=== PATIENT | female | born 1955 | race Caucasian/White ===

== ENCOUNTER 2020-04-26 09:43 | Outpatient (NON) | payer BC, SELFPAY ==
[2020-04-27 20:00] LABS: SARS-CoV-2 RNA PCR Negative
== END 2020-04-26 09:44 ==
PROVIDERS: PCP Family Medicine; Visit Provider Physician Assistant
DX: Z20.828 Contact with and (suspected) exposure to other viral communicable diseases (principal); R68.89 Other general symptoms and signs
CPT/HCPCS: 87635; C9803; U0003

== ENCOUNTER 2020-11-01 20:10 | Observation (INO) | payer BC, SELFPAY ==
--- NOTE | ~2020-11-01 | MR_ITS ---
EXAMINATION: MR brain/brain stem wo/w con DATE: 11/02/2020 13:45 CDT INDICATION: Paresthesia TECHNIQUE: Magnetic resonance imaging (MRI) of the brain and brainstem was performed without intraven ous contrast. Sequences included sagittal and axial T1-weighted SE, axial diffusion-weighted FS SE, a xial T2*-weighted GRE, axial T2-weighted FLAIR Propeller, and axial T2-weighted Propeller. Apparent d iffusion coefficient (ADC) maps were created. COMPARISON: CTA dated 11/01/2020 FINDINGS: The brain volume and ventricular system are within normal limits. The brain parenchymal si gnal intensity pattern and yu/white matter is normal and there is no evidence of hemorrhage, space occupying masses or infarctions. There are scattered mild periventricular and subcortical white matte r changes, most likely related to small vessel ischemic disease (microangiopathy). The flow signal voids of the major arterial structures about the [place] and within the giovanna r dural venous sinuses appear grossly unremarkable and patent. The seventh and eighth cranial nerve complexes are normal. The mid sagittal image demonstrates a normal craniovertebral junction and kaila us callosum. The paranasal sinuses are grossly unremarkable. No abnormal contrast enhancement was appreciated. IMPRESSION: 1: No acute intracranial abnormality. 2: Chronic age-related findings. Reviewed, dictated and finalized at location B.
--- NOTE | ~2020-11-01 | CT_ITS ---
EXAMINATION: CTA brain carotid DATE: 11/01/2020 21:23 INDICATION: Left-sided numbness. TECHNIQUE: Computed tomographic angiography (CTA) of the head was performed without and with 100 mL O mnipaque-350 intravenous contrast. CTA of the neck was performed with intravenous contrast. Automated exposure control and iterative reconstruction technique were employed. The dose-length product was 1 687.24 mGy-cm. Maximum intensity projection and volume rendered 3D-reconstructions were created by natalee diaz technologist on a separate workstation. COMPARISON: None. FINDINGS: HEAD CTA: There is no intracranial hemorrhage, acute infarction, or abnormal intracranial mass lesion . The ventricles are normal in size. The orbits are normal. The paranasal sinuses are clear. The mast oid air cells are normal. The vertebral arteries are codominant. There is no significant stenosis of basilar artery. There are foci of moderate stenosis of left posterior cerebral artery. There is no si gnificant stenosis of the intracranial internal carotid arteries or anterior or middle cerebral arter ies. Anterior communicating artery is normal. The posterior communicating arteries are normal. There is no aneurysm. NECK CTA: There are no pathologically enlarged lymph nodes. There is no significant stenosis of the v ertebral arteries. There is plaque in the proximal right internal carotid artery. There is 0% stenosi s of the proximal right internal carotid artery relative to normal distal artery lumen diameter (NASC ET criteria). There is 0% stenosis of the proximal left internal carotid artery relative to normal di stal artery lumen diameter. There is mild cervical spondylosis. IMPRESSION: 1. Normal brain parenchyma. 2. Foci of moderate stenosis of left posterior cerebral artery. 3. 0% stenosis of the proximal internal carotid arteries relative to normal distal artery lumen diam eters (NASCET criteria). Reviewed, dictated and finalized at location A. IMPRESSION: 1. Normal brain parenchyma. 2. Foci of moderate stenosis of left posterior cerebral artery. 3. 0% stenosis of the proximal internal carotid arteries relative to normal di stal artery lumen diameters (NASCET criteria).
[2020-11-01 20:16] VITALS: BP 109/78; PULSE 59; RESP 20; TEMP 36.1; O2SAT 99
--- NOTE | 2020-11-01 20:28 | ECG_ITS ---
Measurements Intervals [place] Rate: 63 P: 14 ND: 169 QRS: -24 QRSD: 116 T: 84 QT: 425 QTc: 438 Interpretive Statements SINUS RHYTHM NONSPECIFIC ST & T-WAVE ABNORMALITY- HIGH LATERAL LEADS BASELINE ARTIFACT- I, II, III, V5 BORDERLINE ECG Electronically Signed On 11-02-2020 6:10:55 CDT by Tyrone Garcia D.O.
--- NOTE | 2020-11-01 20:30 | ED.NEUROSD ---
HPI - Neuro Symptoms/Deficit General Chief Complaint: Neuro Symptoms/Deficit Stated Complaint: hands and lips numbness/tingling since Thursday Time Seen by Provider: 11/01/20 20:14 History of Present Illness HPI Narrative: 64 yo female w/ h/o hypothyroidism, hyperlipidemia presents to the ED for paresthesias. She reports that she has had three episodes of numbness in her lips and fingertips on the left side.. The first one was 3 days ago. The most recent was tonight. Tonight's was different in that she also felt lgiht headed. Each episode lasted 5 minutes of less. No trigger identified. She also has been experiencing a sore throat and left ear for the past few days. And she admits to spending significant time out in the heat. She had 2 tick bites recently. No rash. Related Data Home Medications Medication Instructions Recorded Confirmed aspirin 81 mg tablet,delayed 81 mg PO DAILY 11/07/19 11/02/20 release travoprost 0.004 % eye drops 1 drop EACH EYE QPM 11/07/19 11/02/20 Adult One Daily Multivitamin 1 tablet PO DAILY 11/01/20 11/02/20 vitamins A,C,I-jrys-bcdfqn 2 tablet PO BID 11/01/20 11/02/20 Allergies Allergy/AdvReac Type Severity Reaction Status Date / Time No Known Allergies Allergy Unknown Verified 11/02/20 00:12 Review of Systems Review of Systems: All systems reviewed & are unremarkable except as noted in HPI and below Constitutional: Constitutional: Denies fever(s) and Denies weakness Eyes: Eyes: Reports no additional eye complaints ENT: Comments: otalgia Cardiovascular: Cardiovascular: Denies chest pain Respiratory: Respiratory: Denies dyspnea Integumentary/Breasts: Skin/Breast: Denies rash Neurologic: Reports as per HPI Psychiatric: Psychiatric: Denies anxiety PMFSH Past Medical History Medical History (Updated 11/05/20 @ 17:34 by Jozef White MD) Acquired hammer toe Benign essential HTN Esophageal dyskinesia Hyperlipidemia Hypothyroidism (acquired) Surgical History Surgical History History of appendectomy History of bunionectomy History of cholecystectomy History of repair of ACL bilateral Hx of colonoscopy Hx of hysterectomy Family History Family History Mother Diabetes mellitus Hypertension Brain tumor Father Hypertension Acute myocardial infarction Sibling Patient's sister is in good health Hypertension Sibling Hypertension Social History Social History Social History: domestic partnership Smoking status: Never smoker Second hand tobacco smoke exposure: Yes Alcohol intake: current Drinks per week: 4 Substance use: never Substance use type: does not use Gender identity (if verbalized by the patient): Female Spiritual care concerns: No Exam Const: General: healthy appearing, no acute distress and alert Orientation/consciousness: patient oriented x3 HENMT: Head: normal to inspection Ears: external ears normal, TM's normal bilaterally and EAC's normal Eyes: Conjunctivae: conjunctivae normal Pupils: Equal, round and reactive pupils present EOM: EOMs intact bilaterally Neck: Neck: normal visual inspection and no lymphadenopathy Chest: Chest palpation & inspection: no tenderness Resp: Effort & Inspection: normal respiratory effort Auscultation: clear to auscultation bilaterally, no rales, no rhonchi and no wheezes Cardio: Jugular venous distension: no JVD Rate: regular rate Rhythm: regular rhythm Heart sounds: no murmurs GI: Inspection: non-distended GI Palp: Yes Soft to palpation and No Tenderness to palpation present (GI) Skin: General skin exam: normal color Rashes: no rashes Wounds: wound noted Neuro: General: patient oriented x3, moves all extremities, no focal motor deficits and CN's II-XI intact bilaterally Cranial
[2020-11-01 20:47] LABS: Basophils Absolute Auto 0.1 K/mm3 (0.0-0.1); Basophils Percent Auto 0.8 % (0.2-1.2); Eosinophils Absolute Auto 0.2 K/mm3 (0-0.3); Eosinophils Percent Auto 2.7 % (0-4.4); Hematocrit 39.8 % (37.0-47.0); Hemoglobin 13.1 g/dL (12.0-15.0); Immature Granulocyte Absolute 0.02 K/mm3 (0.00-0.031); Immature Granulocyte Percent A 0.3 % (0-0.5); Lymphocytes Absolute Auto 2.95 K/mm3 (0.9-3.2); Lymphocytes Percent Auto 40.2 % (18.3-44.2); Mean Corpuscular HGB Conc 32.9 g/dl (32-36); Mean Corpuscular Hemoglobin 28.9 pg (26-34); Mean Corpuscular Volume 87.9 fl (80-100); Mean Platelet Volume 9.4 fl (7.4-10.4); Monocytes Absolute Auto 0.5 K/mm3 (0.1-0.6); Monocytes Percent Auto 6.4 % (2.6-8.5); Neutrophils Absolute Auto 3.6 K/mm3 (1.3-6.7); Neutrophils Percent Auto 49.6 % (45.5-73.1); Platelet Count Result 220 k/mm3 (150-375); Red Blood Count 4.53 M/mm3 (4.2-5.4); Red Cell Distribution Width 12.3 % (11.5-14.5); White Blood Count 7.3 K/mm3 (4.5-10.0)
[2020-11-01] MEDS: SODIUM CHLORIDE 0.9% IV 1,000 ML 999 ML IV CONT (20:49)
[2020-11-01 20:57] LABS: Alanine Aminotransferase 23 U/L (4-35); Albumin Level 4.5 g/dL (3.5-5.1); Alkaline Phosphatase 67 U/L (38-126); Anion Gap 8 mmol/L (8-16); Aspartate Amino Transferase 34 U/L (14-36); Bilirubin,Total 0.3 mg/dL (0.2-1.3); Blood Urea Nitrogen 17 mg/dL (7-17); Calcium 9.5 mg/dL (8.4-10.2); Carbon Dioxide 25 mmol/L (22-30); Chloride 106 mmol/L (98-107); Estimated Glomerular Filt Rate > 60; Glucose 93 mg/dL (65-105); INR 0.9; Potassium 3.8 mmol/L (3.4-5.0); Sodium 139 mmol/L (137-145)
[2020-11-01 21:09] LABS: Troponin I < 0.012 ng/mL (0.000-0.034)
--- NOTE | 2020-11-01 23:22 | PM.IMHP ---
H&P: HPI History of Present Illness Date/Time: 11/01/20 23:22 Chief Complaint: numbness Narrative: this is a 64-year-old female with past medical history significant for dyslipidemia and type 2 diabetes mellitus GERD hypothyroidism. Patient presented to the emergency room due to tingling numbness sensation on of finger tips of her left hand around her lips and migraine headache with tightness of the scalp on the left parietal region, no focal weakness no visual deficit had problems finding words as well. Patient states that she has been playing golf most of the last couple of weeks or so and has been keeping up with her hydration has had night sweats denies rashes joint pain sore throat no fevers no rigors no chills no cough no shortness of breath has had a few episodes as above mentioned but today she felt he was worse which made her come to the emergency room.Patient also had to tick bites within the last week or so and was able to dislodged them. preliminary workup has been essentially non revealing. Patient has been placed for observation. Review of Systems Review of Systems: Narrative: numbness tingling sensation around the lips and fingertips migraine headache a scalp paresthesia Constitutional: Constitutional: Denies body ache(s), Denies chills, Denies fatigue, Denies fever(s), Denies lethargy, Denies malaise, Reports night sweats and Denies weakness Eyes: Eyes: Denies change in vision ENT: Denies facial pain, Denies mouth pain, Denies nasal congestion, Denies nasal discharge, Denies nasal obstruction, Denies post nasal drip, Denies throat swelling and Denies tongue swelling Cardiovascular: Cardiovascular: Denies chest pain, Denies irregular heart rhythm, Denies claudication, Denies leg edema, Denies lightheadedness, Denies radiating jaw, neck or arm pain, Denies palpitations, Denies dyspnea and Denies dyspnea on exertion Respiratory: Respiratory: Denies chest congestion, Denies cough, Denies dyspnea, Denies dyspnea on exertion and Denies wheezing Gastrointestinal: Gastrointestinal: Denies diarrhea, Denies nausea and Denies vomiting Genitourinary: Genitourinary: Reports no additional female genitourinary complaints Musculoskeletal: Musculoskeletal: Denies arthralgias, Denies joint swelling, Denies limited range of motion and Denies muscle weakness Integumentary/Breasts: Skin/Breast: Denies rash Neurologic: Reports Abnormal speech present, Denies focal weakness, Denies loss of vision, Reports numbness and Reports paresthesias Psychiatric: Psychiatric: Reports no additional psychiatric complaints Endocrine: Endocrine: Reports no additional endocrine complaints Hematologic/Lymphatic: Hematologic/Lymphatic: Reports no additional hematologic/lymphatic complaints Allergic/Immunologic: Allergic/Immunologic: Reports no additional allergic/immunologic complaints PMFSH Past Medical History Medical History (Updated 11/02/20 @ 00:20 by Nely Olvera MD) Acquired hammer toe Benign essential HTN Esophageal dyskinesia Hyperlipidemia Hypothyroidism (acquired) Surgical History Surgical History History of appendectomy History of bunionectomy History of cholecystectomy History of repair of ACL bilateral Hx of colonoscopy Hx of hysterectomy Family History Family History Mother Diabetes mellitus Hypertension Brain tumor Father Hypertension Acute myocardial infarction Sibling Patient's sister is in good health Hypertension Sibling Hypertension Social History Social History (Updated 01/31/20 @ 10:29 by Sophia Nur) Social History: domestic partnership Smoking status: Never smoker Second hand tobacco smoke exposure: Yes Alcohol intake: current Drinks per week: 4 Substance use: never Substance use type: does not use Gender identity (if verbalized by the pat
[2020-11-01 23:27] VITALS: BP 131/71; PULSE 66; RESP 14; O2SAT 99
--- NOTE | 2020-11-01 23:50 | ADMGEN ---
This patient, Hiwot Zaman, was admitted to Medical Room 348-01. Patient/family oriented to hospital policies and general routines including ID bracelet, bed and alarms, visiting hours, pain management, procedures, bathroom and other care routines, personal items, smoking policy, room service/diet, and visiting hours. Information on how to activate the Rapid Response Team has been discussed. Patient/Family are encouraged to report perceived risks to care and to ask questions if they do not understand what they are told or what they should do.
[2020-11-02] VITALS (11 sets, daily range): BP systolic 142–170; BP diastolic 60–69; PULSE 53–76; RESP 15–16; TEMP 36.2–36.6; O2SAT 97–99; BMI 32.4
--- NOTE | 2020-11-02 | ECHO_ITS ---
Patient Info Name: Hiwot Zaman Age: 64 years : 1955 Gender: Female Ht: 68 in Wt: 213 lbs BSA: 2.18 m2 HR: 56 bpm BP: 161 / 67 mmHg Technical Quality: Good Exam Date: 11/02/2020 3:53 PM Exam Location: [facility] Patient Status: Inpatient Admit Date: 11/01/2020 Staff Ordering Physician: Meaghan Fenton PA-C Practice Management Consultant: Erica Araiza RDCS Attending Provider: Meaghan Fenton PA-C Referring Physician: Jossy HERNÁNDEZ; Exam Type: CA echo doppler w bubble study Study Info Indications - TIA Complete two-dimensional, color flow and Doppler transthoracic echocardiogram is performed with agitated saline. Contrast/Agitated Saline Contrast/Ag. Saline: Agitated Saline Amount: 20.00 ml Administered By: Peggy Carrington RN Existing IV Access: Yes IV Access Condition: patent with no signs of infiltration Summary 1. Left ventricular chamber dimension is normal. 2. Left ventricular systolic function is normal, estimated at 60-65%. 3. There is mildly increased left ventricular wall thickness. 4. The left ventricular diastolic function is grade I diastolic dysfunction. 5. E/e' 10 is mildly elevated. 6. Left atrial chamber dimension is moderately enlarged. 7. There is mild mitral valve regurgitation. 8. There is trace tricuspid valve regurgitation. 9. No pulmonary hypertension, estimated pulmonary arterial systolic pressure is 29 mmHg. Left Ventricle E/e' 10 is mildly elevated. Left ventricular chamber dimension is normal. Left ventricular systolic function is normal, estimated at 60-65%. There is mildly increased left ventricular wall thickness. The left ventricular diastolic function is grade I diastolic dysfunction. Right Ventricle Right ventricular chamber dimension is normal. Right ventricular systolic function is normal. Left Atria Left atrial chamber dimension is moderately enlarged. Right Atria Right atrial chamber dimension is normal. Atrial Septum Agitated saline injection with and without valsalva maneuver opacified right cardiac chambers without shunt to left cardiac chambers. Intact interatrial septum visualized by agitated saline imaging. Aortic Valve The aortic valve is trileaflet. There is no aortic valve stenosis. There is no aortic valve regurgitation. Pulmonic Valve There is no pulmonic regurgitation. Mitral Valve There is no mitral valve stenosis. There is mild mitral valve regurgitation. Tricuspid Valve There is trace tricuspid valve regurgitation. No pulmonary hypertension, estimated pulmonary arterial systolic pressure is 29 mmHg. Pericardium/Pleural There is no pericardial effusion. Inferior Vena Cava Normal inferior vena cava with >50% collapse upon inspiration consistent with normal right atrial pressure, 5 mmHg. Aorta The aortic root size at the sinus of Valsalva is normal. Left Ventricular Outflow Tract Name Value Normal LVOT 2D LVOT Diameter 2.0 cm LVOT Doppler LVOT Peak Gradient 5 mmHg LVOT Mean Gradient 3 mmHg
[2020-11-02 00:37] LABS: Add Urine Microscopic? NO; Appearance Urine Clear (Clear); Bilirubin Urine Negative (Negative); Blood Urine Negative (Negative); Color Urine Yellow (Yellow); Glucose Urine UA Negative (Negative); Ketones Urine Negative (Negative); Leukocyte Esterase Ur Negative LEU/UL (Negative); Nitrate Urine Negative (Negative); Protein Urine Negative (Negative); Urobilinogen Urine Negative mg/dL (<2.0)
[2020-11-02] MEDS: LEVOTHYROXINE SODIUM 75 MCG TABLET PO (05:46)
[2020-11-02] MEDS: PANTOPRAZOLE 40 MG TABLET PO (08:51)
[2020-11-02] MEDS: ROSUVASTATIN 10 MG TABLET PO (08:51)
[2020-11-02] MEDS: EZETIMIBE 10 MG TABLET PO (08:51)
[2020-11-02] MEDS: OPTI-GEN TAB 2 TABLET PO ×2 (08:51→18:00)
[2020-11-02] MEDS: ASPIRIN 81 MG ENTERIC TABLET PO (08:51)
[2020-11-02] MEDS: THERAPEUTIC MULTIVITAMINS/MINERALS TAB (*BKC) 1 TABLET PO (08:51)
[2020-11-02] MEDS: ACETAMINOPHEN 500 MG TABLET 1000 MG PO (08:58)
[2020-11-02 12:00] LABS: Folic Acid 18.5 ng/mL (2.76->20)
--- NOTE | 2020-11-02 13:25 | WPDNEURCNPN ---
Assessment and Plan Additional Plan evaluation up until now has documented the fossae of moderate stenosis of left posterior cerebral artery on CTA, MRI of the brain is pending most likely we are dealing with the possibility of the TIA and depending on the results of the MRI further recommendation will made regarding the possibility of using aspirin and Plavix or else anticoagulation if the echocardiogram turns out to be something different as well Consult date: 11/02/20 Time Seen: 13:15 HPI: Hiwot Zaman is a 64 year old femaleHas [facility] for the complaints of tingling and numbness of the fingers of her left hand along with the numbness around her lips and migrainous type of headache with tightness of the scalp in the left parietal region but no focal weakness, no visual deficit, though some difficulties in finding the right word for the communication patient has been playing golf most of the last couple of weeks and has been keeping up with her hydration he gave no history of any other associated symptomatology she did have a tick bite within the last week or so was able to dislodge by herself her past history is consistent with the hypertension, esophageal dyskinesia, hypothyroidism, and hyperlipidemia. Family history is positive for diabetes mellitus and hypertension he drinks 4 drinks per week and is not a smoker though has been exposed to secondhand tobacco Review of Systems Review of Systems: All systems reviewed & are unremarkable except as noted in HPI and below PMFSH Past Medical History Medical History Acquired hammer toe Benign essential HTN Esophageal dyskinesia Hyperlipidemia Hypothyroidism (acquired) Surgical History Surgical History History of appendectomy History of bunionectomy History of cholecystectomy History of repair of ACL bilateral Hx of colonoscopy Hx of hysterectomy Family History Family History Mother Diabetes mellitus Hypertension Brain tumor Father Hypertension Acute myocardial infarction Sibling Patient's sister is in good health Hypertension Sibling Hypertension Social History Social History Social History: domestic partnership Smoking status: Never smoker Second hand tobacco smoke exposure: Yes Alcohol intake: current Drinks per week: 4 Substance use: never Substance use type: does not use Gender identity (if verbalized by the patient): Female Spiritual care concerns: No Meds Home Medications and Allergies Home Medications Medication Instructions Recorded Confirmed Type aspirin 81 mg tablet,delayed 81 mg PO DAILY 11/07/19 11/02/20 History release ezetimibe 10 mg tablet 10 mg PO DAILY #90 tablet 11/07/19 11/02/20 Rx levothyroxine 75 mcg capsule 75 mcg PO DAILY #90 cap 11/07/19 11/02/20 Rx omeprazole 40 mg capsule,delayed 40 mg PO DAILY #90 cap 11/07/19 11/02/20 Rx release travoprost 0.004 % eye drops 1 drop EACH EYE QPM 11/07/19 11/02/20 History rosuvastatin 10 mg tablet 10 mg PO DAILY #90 tablet 01/31/20 11/02/20 Rx multivit with min-folic acid 1 tablet PO DAILY 11/01/20 11/02/20 History [Adult One Daily Multivitamin] vitamins A,C,T-giol-lkayfo 2 tablet PO BID 11/01/20 11/02/20 History [Ocuvite Preservision] Allergies Allergy/AdvReac Type Severity Reaction Status Date / Time No Known Allergies Allergy Unknown Verified 11/02/20 00:12 Vital Signs Vital Signs - 24 hr 11/01/20 20:16 11/01/20 23:27 11/02/20 00:00 Temperature 36.1 C L Pulse Rate 59 L 66 76 Respiratory Rate 20 14 Blood Pressure 109/78 131/71 Pulse Oximetry 99 99 11/02/20 00:03 11/02/20 00:40 11/02/20 04:00 Temperature 36.2 C L Pulse Rate 62 60 Respiratory Rate 16 Blood Pressure 170/69 H 150
[2020-11-02] MEDS: CYANOCOBALAMIN INJ 1,000 MCG/ML VIAL 1000 MCG IM (14:11)
--- NOTE | 2020-11-02 15:13 | PM.IMPN ---
Progress Note: A&P Assessment and Plan (1) Paresthesia and pain of left extremity: Code(s): M79.609 - Pain in unspecified limb; R20.2 - Paresthesia of skin Status: Acute Assessment and Plan: Worrisome for TIA since she also had slurred speech as well as CTA finding of moderate stenosis of the left posterior cerebral artery -neurology has recommended aspirin and Plavix -echocardiogram to be done with bubble study to ensure no pathology. Patient would like to have this done prior to discharge as she is going on vacation later this month it will not be able to get to her primary care physician -she also has B12 deficiency which can cause paresthesias. This was replaced and I spoke to her about this. She says she has a history of this and denies any gastric bypass history -will increase rosuvastatin, add Plavix, could start B12, and draw a lipid panel as well as a parietal antibody lab in the morning -she also has a history of a tick bite which resulted in no rash. Lyme disease is pending -she sees Dr. Caldwell and plans to get a Holter monitor outpatient (2) Tick bite: Code(s): W57.XXXA - Bitten or stung by nonvenomous insect and other nonvenomous arthropods, initial encounter Status: Acute Assessment and Plan: Lyme disease serology awaiting -no acute infection (3) Esophageal dyskinesia: Code(s): K22.4 - Dyskinesia of esophagus Status: Acute Assessment and Plan: NO acute symptoms (4) Hypothyroidism (acquired): Code(s): E03.9 - Hypothyroidism, unspecified Status: Acute Assessment and Plan: Will check TSH -continue levothyroxine (5) Hyperlipidemia: Code(s): E78.5 - Hyperlipidemia, unspecified Status: Acute Assessment and Plan: Increase rosuvastatin -continue ezetimibe -Lipid panel in the AM Additional Plan It was initially documented that the pt has diabetes. Pt denies this and her glucose has been normal. Time Spent With Patient Time with patient: 25 - 35 minutes Subjective Date/time seen: 11/02/20 15:13 Interval history: Pt is a 62-year-old female here for numbness and slurred speech. Patient was seen today and states her symptoms are about gone. She still has some numbness to the left fingertips but her speech has improved. She denies weakness, vision changes or problems with balance. Patient states that she always has an asymmetrical face and that this is not abnormal. She denies chest pain, fevers, chills, nausea, vomiting, abdominal pain or leg swelling. She says she has a history of vitamin deficiency. She has not had any gastric surgery. Review of Systems Review of Systems: All systems reviewed & are unremarkable except as noted in HPI and below Exam Narrative: Exam Narrative: General: Well developed well nourished patient in NAD HEENT: normocephalic Neck: supple Neuro: Alert and oriented x4. Cranial nerves 2-12 intact. Equal strength the upper lower extremity 5/5. Able to do alternating movements and [id number]. Slight asymmetry to the left mouth which she says is chronic CV:RRR. Telemetry shows normal sinus rhythm rate of 62 Resp:CTA Abd: Soft, non distended. No pain to palpation. Positive bowel sounds Extremities: No swelling, erythema, or pain to palpation. Objective Data Vital Signs Vital Signs: Vital Signs - 24 hr 11/01/20 20:16 11/01/20 23:27 11/02/20 00:00 Temperature 97 F L Pulse Rate 59 L 66 76 Respiratory Rate 20 14 Blood Pressure 109/78 131/71 Pulse Oximetry 99 99 11/02/20 00:03 11/02/20 00:40 11/02/20 04:00 Temperature 97.2 F L Pulse Rate 62 60 Respiratory Rate 16 Blood Pressure 170/69 H 150/60 H Pulse Oximetry 99 11/02/20 05:30 11/02/20 08:00 11/02/20 12:00 Temperature 97.3 F L Pulse Rate 68 64 65 Respiratory Rate 15 Blood Pressure 158/63 H Pulse Oximetry 99 11/02/20 14:00 Temperature 97.8 F Pulse Rate 65 Resp
[2020-11-02] MEDS: CLOPIDOGREL BISULFATE 75 MG TABLET PO (18:01)
[2020-11-02] MEDS: LATANOPROST 0.005% OP SOLN 2.5 ML BTL 1 DROP EACH EYE (20:02)
[2020-11-03] VITALS: PULSE 61
[2020-11-03 04:00] VITALS: PULSE 57
[2020-11-03] MEDS: LEVOTHYROXINE SODIUM 75 MCG TABLET PO (05:42)
[2020-11-03 05:52] VITALS: BP 149/55; PULSE 62; RESP 14; TEMP 36.7; O2SAT 97
[2020-11-03 06:08] LABS: Cholesterol 189 mg/dL (0-200); HDL Direct 45 mg/dL; Triglycerides 265 mg/dL (<150)
[2020-11-03 06:19] LABS: LDL Cholesterol Direct 77 mg/dL
[2020-11-03 08:00] VITALS: PULSE 57
[2020-11-03 08:07] VITALS: O2SAT 97
--- NOTE | 2020-11-03 08:37 | PM.DS ---
DS: Admitting Diagnosis Admitting Diagnosis Admitting Diagnosis: TIA DS: Discharge Diagnosis Discharge Diagnosis (1) TIA (transient ischemic attack): Code(s): G45.9 - Transient cerebral ischemic attack, unspecified Status: Acute Assessment and Plan: s/s consistent with TIA with slurred speech and parastesias -head/neck CT shows: 1. Normal brain parenchyma. 2. Foci of moderate stenosis of left posterior cerebral artery. 3. 0% stenosis of the proximal internal carotid arteries relative to normal distal artery lumen diameters (NASCET criteria -MRI brain shows: no acute intracranial abnormalities -Echo without cause for TIA -Neurology has recommended addition of plavix for 4 weeks and then to go back to aspirin -rosuvastatin dose increased -Pt is going to f/u with Dr. Caldwell for heart monitor to ensure no Cardiac arrhythmias which could have caused this although tele was negative while she was here. (2) Paresthesia and pain of left extremity: Code(s): M79.609 - Pain in unspecified limb; R20.2 - Paresthesia of skin Status: Acute Assessment and Plan: As above -she also has B12 deficiency which can cause paresthesias. This was replaced and I spoke to her about this. She says she has a history of this and denies any gastric bypass history. parietal ab lab pending. -she also has a history of a tick bite which resulted in no rash. Lyme disease is pending -f/u with Dr. Caldwell about pending test results (3) Tick bite: Code(s): W57.XXXA - Bitten or stung by nonvenomous insect and other nonvenomous arthropods, initial encounter Status: Acute Assessment and Plan: Lyme disease serology awaiting -no acute infection (4) Esophageal dyskinesia: Code(s): K22.4 - Dyskinesia of esophagus Status: Acute Assessment and Plan: No acute symptoms (5) Hypothyroidism (acquired): Code(s): E03.9 - Hypothyroidism, unspecified Status: Acute Assessment and Plan: TSH normal, continue levothyroxine (6) Hyperlipidemia: Code(s): E78.5 - Hyperlipidemia, unspecified Status: Acute Assessment and Plan: rosuvastatin increased -continue ezetimibe -Lipid panel with increased trips at 265, ldl 77. DS: Summary Hospital Course Hospital Course: patient is a 64-year-old female who presented to the emergency room for paresthesias and slurred speech which have been episodic. vitals in the ER were temperature 36.1? C, pulse 59, respiratory rate 20, blood pressure 109/78, pulse ox 99 on room air. CTA of the head did not show any acute abnormality. Patient was admitted to the hospitalist service and further workup was pursued. her MRI was negative and her echo did not show any cause for concern. Her symptoms were concerning for TIA versus B12 deficiency. She also is being tested for Lyme disease as she has had tick bites but no rash. please see above for further details and plan. the day of discharge the patient felt close to baseline and ready to go home. She has plans to follow-up with Dr. Caldwell for the rest of her test results and further workup as needed. She was educated about the worrisome signs and symptoms to come back to emergency room for and was discharged stable condition. Please see below for her medication changes. Status at Discharge Overall status at discharge: patient is back to baseline Time Spent with Patient Time attestation: Total time spent providing and/or coordinating discharge services:38 min Time spent: Greater than 30 minutes Exam Narrative: Exam Narrative: General: Well developed well nourished patient in NAD HEENT: normocephalic Neck: supple Neuro: Alert and oriented x4. Cranial nerves 2-12 intact. Equal strength the upper lower extremity 5/5. Able to do alternating movements and gbkomr-gr-haxk. Slight asymmetry to the left mouth which she says is chronic CV:RRR. Telemetry shows
[2020-11-03] MEDS: THERAPEUTIC MULTIVITAMINS/MINERALS TAB (*BKC) 1 TABLET PO (09:32)
[2020-11-03] MEDS: ROSUVASTATIN 10 MG TABLET 20 MG PO (09:32)
[2020-11-03] MEDS: EZETIMIBE 10 MG TABLET PO (09:32)
[2020-11-03] MEDS: PANTOPRAZOLE 40 MG TABLET PO (09:32)
[2020-11-03] MEDS: CLOPIDOGREL BISULFATE 75 MG TABLET PO (09:32)
[2020-11-03] MEDS: OPTI-GEN TAB 2 TABLET PO (09:32)
[2020-11-03] MEDS: CYANOCOBALAMIN 1,000 MCG TABLET 1000 MCG PO (09:33)
[2020-11-03] MEDS: ASPIRIN 81 MG ENTERIC TABLET PO (09:33)
[2020-11-06 19:42] LABS: Lyme Disease Ab (IgM), Blot Negative (Negative); Lyme Disease Ab(IgG), Blot Negative (Negative)
--- NOTE | 2020-11-14 10:23 | PC.NURSE ---
Lyme tests are negative. Anti parietal panel is normal at <=20. Faxed to Dr. Caldwell.
== END 2020-11-03 10:45 | disposition home or self-care (01) ==
LOC: ANHED 20:49 → ANH3MED 22:54
PROVIDERS: Physician Assistant; Admitting Provider Internal Medicine; Emergency Provider Emergency Medicine; PCP Family Medicine; Visit Provider Emergency Medicine
DX: G45.9 Transient cerebral ischemic attack, unspecified (principal); R20.2 Paresthesia of skin; E78.5 Hyperlipidemia, unspecified; K21.9 Gastro-esophageal reflux disease without esophagitis; E03.9 Hypothyroidism, unspecified; I10 Essential (primary) hypertension; W57.XXXA Bitten or stung by nonvenomous insect and other nonvenomous arthropods, initial encounter; K22.4 Dyskinesia of esophagus; E53.8 Deficiency of other specified B group vitamins
CPT/HCPCS: 36415; 70496; 70498; 70553; 80053; 80061; 81003; 82607; 82746; 83516; 84443; 84484; 85025; 85610; 85730; 86617; 93005; 93306; 96360; 96372; 96375; 99285; A9270; A9577; G0378; J3420; J7030; Q9967

== ENCOUNTER 2021-03-08 08:53 | Outpatient (CLI) | payer BC, SELFPAY ==
--- NOTE | ~2021-03-08 | XR_ITS ---
EXAMINATION: XR chest 2V EXAM DATE: 03/08/2021 09:28 INDICATION: R61 -Generalized hyperhidrosis. SOB Upon Exertion. H/O HTN . TECHNIQUE: Frontal and lateral projections of the chest obtained and reviewed. Comparison is made to prior examination from 04/29/2017. FINDINGS: There are cholecystectomy clips. The lungs are clear. There are no pleural effusions. Th e cardiomediastinal silhouette is within normal limits. There is no pneumothorax suspected. The bon es and soft tissues are unremarkable. IMPRESSION: No acute cardiopulmonary findings. Reviewed, dictated and finalized at location B.
== END 2021-03-08 08:54 | disposition home or self-care (01) ==
LOC: ANHIMG 09:02
PROVIDERS: PCP Family Medicine; Visit Provider Family Medicine
DX: R61 Generalized hyperhidrosis (principal)
CPT/HCPCS: 71046

== ENCOUNTER → 2021-04-22 14:43 | Outpatient (CLI) | payer BC, SELFPAY ==
--- NOTE | ~2021-04-22 | MM_ITS ---
EXAMINATION: MM screening [facility] BI w jennifer HISTORY: Screening mammogram TECHNIQUE: Craniocaudal and mediolateral oblique 3-D tomosynthesis images were obtained and synthetic 2-D images were generated. CAD analysis was submitted and interpreted. COMPARISON: 08/02/2018, 07/26/2015 BREAST PARENCHYMAL COMPOSITION: The breasts are heterogeneously dense, which may obscure small masses . FINDINGS: RIGHT BREAST: There is no evidence of suspicious mass, calcification, or architectural distortion to suggest malignancy. There has been no significant interval change. LEFT BREAST: A mass is present in the posterior third of the breast 11 cm from the nipple below the n ipple axis on the mediolateral oblique view (tomosynthesis image /). IMPRESSION: 1. Left breast mass. 2. Additional mammographic views and possible breast ultrasound are recommended. BI-RADS Category 0: Incomplete: Needs additional imaging evaluation. Reviewed, dictated and finalized at location A. FACTURING QUALITY INSPECTOR IMPRESSION: 1. Left breast mass. 2. Additional mammographic views and possible breast ultrasound are recommended . BI-RADS Category 0: Incomplete: Needs additional imaging evaluation.
== END ==
PROVIDERS: PCP Family Medicine; Visit Provider Family Medicine
DX: Z12.31 Encounter for screening mammogram for malignant neoplasm of breast (principal); R92.8 Other abnormal and inconclusive findings on diagnostic imaging of breast
CPT/HCPCS: 77063; 77067

== ENCOUNTER → 2021-05-13 09:06 | Outpatient (CLI) | payer BC, SELFPAY ==
--- NOTE | ~2021-05-13 | MMUS_ITS ---
EXAMINATION: MM diagnostic jillian LT w jennifer, US breast LT limited HISTORY: Left breast mass on screening mammogram TECHNIQUE: Additional 3-D tomosynthesis images of the left breast were performed and synthetic 2-D im ages were generated. CAD analysis was submitted and interpreted. High resolution limited left breast ultrasound was performed. COMPARISON: 04/22/2021, 08/02/2018, 07/26/2015 FINDINGS: MAMMOGRAPHIC FINDINGS: There is a 6 mm oval, circumscribed, low density mass in the far posterior third of the outer breast 4:00 location 11 cm from the nipple. ULTRASOUND: There is a 5 mm x 3 mm oval, circumscribed, parallel, hypoechoic mass with no posterior features or i nternal vascularity at the 4:00 location 8 cm from the nipple. IMPRESSION: 1. Probably benign left breast mass. 2. Recommend 6 month follow-up left diagnostic mammogram and ultrasound. BI-RADS category 3, probably benign findings. Reviewed, dictated and finalized at location A. IRER ENGINE PRODUCTION IMPRESSION: 1. Probably benign left breast mass. 2. Recommend 6 month follow-up left diagnostic mammogram and ultrasound. BI-RADS category 3, probably benign findings.
== END ==
PROVIDERS: Visit Provider Nurse Practitioner Gerontology
DX: N63.0 Unspecified lump in unspecified breast (principal)
CPT/HCPCS: 76642; 77061; 77065; G0279

== ENCOUNTER 2021-06-27 01:22 | Day surgery (SDC) | payer BC, SELFPAY ==
[2021-06-26 17:46] VITALS: BMI 33.5
[2021-06-27] VITALS (10 sets, daily range): BP systolic 128–160; BP diastolic 63–99; PULSE 58–69; RESP 11–22; TEMP 36.2–36.6; O2SAT 95–100; BMI 33.5
[2021-06-27 07:36] LABS: Basophils Absolute Auto 0.1 K/mm3 (0.0-0.1); Basophils Percent Auto 0.7 % (0.2-1.2); Eosinophils Absolute Auto 0.1 K/mm3 (0-0.3); Eosinophils Percent Auto 1.9 % (0-4.4); Hematocrit 38.7 % (37.0-47.0); Hemoglobin 12.8 g/dL (12.0-15.0); Immature Granulocyte Absolute 0.03 K/mm3 (0.00-0.031); Immature Granulocyte Percent A 0.4 % (0-0.5); Lymphocytes Absolute Auto 2.87 K/mm3 (0.9-3.2); Lymphocytes Percent Auto 38.8 % (18.3-44.2); Mean Corpuscular HGB Conc 33.1 g/dl (32-36); Mean Corpuscular Hemoglobin 29.7 pg (26-34); Mean Corpuscular Volume 89.8 fl (80-100); Mean Platelet Volume 9.5 fl (7.4-10.4); Monocytes Absolute Auto 0.6 K/mm3 (0.1-0.6); Monocytes Percent Auto 8.6 % (2.6-8.5); Neutrophils Absolute Auto 3.7 K/mm3 (1.3-6.7); Neutrophils Percent Auto 49.6 % (45.5-73.1); Platelet Count Result 223 k/mm3 (150-375); Red Blood Count 4.31 M/mm3 (4.2-5.4); Red Cell Distribution Width 12.4 % (11.5-14.5); White Blood Count 7.4 K/mm3 (4.5-10.0)
[2021-06-27 07:46] LABS: Prothrombin Time 12.5 Seconds (11.1-14.7)
[2021-06-27 07:51] LABS: Anion Gap 7 mmol/L (8-16); Blood Urea Nitrogen 19 mg/dL (7-17); Calcium 9.2 mg/dL (8.4-10.2); Carbon Dioxide 24 mmol/L (22-30); Chloride 111 mmol/L (98-107); Estimated CRCL calculation 70 ml/min; Estimated Glomerular Filt Rate > 60; Glucose 130 mg/dL (65-110); Potassium 3.8 mmol/L (3.4-5.0); Sodium 142 mmol/L (137-145)
--- NOTE | 2021-06-27 09:05 | WPDHPUPDATE1 ---
History and Physical Update Update Date/Time: 06/27/21 09:05 History and Physical has been reviewed, including an updated exam of the patient. There are NO changes in the patient's condition. Risks, benefits, and alternatives have been discussed and questions answered. Patient agrees to proceed with procedure.
--- NOTE | 2021-06-27 09:05 | WPDMODSED ---
Moderate Sedation Note-Pt Data Patient Data Allergies Allergy/AdvReac Type Severity Reaction Status Date / Time No Known Allergies Allergy Unknown Verified 06/27/21 07:18 Home Medications Medication Instructions Recorded Confirmed Type aspirin 81 mg tablet,delayed 81 mg PO DAILY 11/07/19 06/26/21 History release ezetimibe 10 mg tablet 10 mg PO DAILY #90 tablet 11/07/19 06/26/21 Rx travoprost 0.004 % eye drops 1 drop EACH EYE QPM 11/07/19 06/26/21 History multivit with min-folic acid 1 tablet PO DAILY 11/01/20 06/26/21 History [Adult One Daily Multivitamin] vitamins A,C,V-akap-egauts 2 tablet PO BID 11/01/20 06/26/21 History rosuvastatin 20 mg tablet 20 mg PO DAILY #90 tablet 11/09/20 06/26/21 Rx clopidogrel 75 mg tablet 75 mg PO QAM #90 tablet 11/16/20 06/26/21 Rx tizanidine 2 mg tablet 2 mg PO TID PRN #30 tablet 03/08/21 06/26/21 Rx cyanocobalamin (vitamin B-12) 1,000 mcg PO QAM #90 tablet 03/13/21 06/26/21 Rx 1,000 mcg tablet levothyroxine 75 mcg capsule 75 mcg PO DAILY #90 cap 04/08/21 06/26/21 Rx pantoprazole 40 mg tablet,delayed 40 mg PO QAM #90 tablet 05/21/21 06/26/21 Rx release losartan 25 mg tablet See Rx Instructions .ROUTE 06/24/21 06/26/21 Rx .COMPLEX #60 tablet Calcium With Vitamin D3 1 tablet PO DAILY 06/26/21 06/26/21 History fish,bora,flax oils-om3,6,9no1 1 cap PO DAILY 06/26/21 06/26/21 History [Triple [place] 3-6-9] lutein 40 mg PO DAILY 06/26/21 06/26/21 History Current Medications: Active Medications Sodium Chloride (Normal Saline Iv) 500 mls @ 100 mls/hr IV CONT .Q5H ALEC Sedation/Anesthesia: No previous sedation/anesthesia problems (including family history). [facility] Past Medical History Medical History Acquired hammer toe Benign essential HTN Esophageal dyskinesia Hyperlipidemia Hypothyroidism (acquired) Surgical History Surgical History History of appendectomy History of bunionectomy History of cholecystectomy History of repair of ACL bilateral Hx of colonoscopy Hx of hysterectomy Family History Family History Mother Diabetes mellitus Hypertension Brain tumor Father Hypertension Acute myocardial infarction Sibling Patient's sister is in good health Hypertension Sibling Hypertension Social History Social History Social History: domestic partnership Smoking packs per day: 0 Smoking cigarettes per day: 0.0 Years smoked: 0 Smoking pack-years: 0.00 Smoking status: Never smoker Second hand tobacco smoke exposure: No Alcohol intake: current Alcohol use details: Socially Substance use: never Substance use type: does not use Other substance usage details: USED A MARIJUANA GUMMY LAST SUMMER 2020 FOR HEADACHE Living arrangements: with family Gender identity (if verbalized by the patient): Female Sexual Orientation (if Verbalized by the Patient): Lesbian, Antonio, or Homosexual Spiritual care concerns: No Mod Sed Physical Exam Physical Exam Pre Procedural Exam: Normal: Appearance, Eyes, Ears, Nose, Neck, Throat, Airway, Lungs, Heart Size, Heart Rate, Heart Rhythm, Neuro Exam, Abdomen, Liver, Kidneys, Spleen, Breasts, Genitalia, Extremities and Skin Hours since solid foods: 8 Hours since liquid intake: 8 Mallampati Classification: class 1 Internal Medicine - PN: Obj Da Vital Signs Vital Signs: Vital Signs - 24 hr 06/27/21 07:20 Temperature 36.6 C Pulse Rate 69 Respiratory Rate 11 L Blood Pressure 149/71 H Pulse Oximetry 95 Meds/Results Medications: Active Medications Generic Name Dose Route Start Last Admin Trade Name Freq PRN Reason Stop Dose Admin Sodium Chloride 500 mls @ 100 mls/hr 06/27/21 07:00 Normal Saline Iv IV CONT .Q5H ALEC Labs CBC &
--- NOTE | 2021-06-27 09:06 | WPDCARDPROC ---
Cardiac Cath Procedure Note Date of procedure:: 06/27/21 Performing physician:: Ana Laura Reyes MD Date of service 06/27/2021- Indication:: persistent chest pain Brief clinical history:: this 65-year-old female with past history of hyperlipidemia, hypertension, hypothyroidism who was having episodes of chest pain. Underwent stress testing and had reproducible chest pain on exertion however the EKG portion did not record ischemia. Due to persistence of symptoms we brought the patient to cathead operator to rule out CAD. Procedure Procedure performed:: 1-Moderate sedation that started at 832 am and ended at 8:58 a.m.using 3mg of Versed and75 mcg fentanyl. The registered nurse was ruchi rivas 2-Selective left and right coronary angiogram. 3-Left heart catheterization with measurement of LVEDP and measurement of gradient across aortic valve. 4- LV angiogram. 4-Right common femoral arterial angiogram. 5-Deployment of 6 Macedonian Angio-Seal. Sedation/Medication given:: Moderate sedation. Access site:: Right common femoral artery. Estimated blood loss:: 10cc Procedure note:: After informed consent patient was brought in to cathead operator with the was draped and prepped in usual manner. Moderate sedation was given and the right groin was infiltrated using 1% lidocaine. Five Macedonian sheath was obtained using micropuncture needle and the modified Seldinger technique. Selective left coronary angiogram was done using JL4 catheter with the tip of the catheter placed in the left main coronary artery. Selective right coronary angiogram was done using JR4 catheter with the tip of the catheter placed to the right coronary artery. After that 5 Macedonian pigtail catheter was advanced across the aortic valve into the left ventricle with measurement of LVEDP and measurement of gradient across aortic valve. LV angiogram was done as well.Right common femoral arterial angiogram was done. Findings:: 1- left coronary artery is a large artery that divides into large LAD, large circumflex artery and large ramus. Left main free of disease. 2- left anterior descending artery is a large artery that runs and wraps around the apex. free of disease. 3- leftcircumflex artery is a large artery Free of disease. Medium-size OM free of disease. 3- Ramus intermedius is large and free of disease. 4- right coronary artery is Very large and dominant and free of disease. 5- LVEDP was 18 mm Hg and no gradient across aortic valve. 6- opening arterial pressure was 160/80and closing pressure was 130/60 7- LV angiogram shows normal ejection fraction 65% lateral motion abnormalities. Normal ascending aorta. 7- right femoral artery angiogram shows no significant disease in the right common femoral artery. Conclusion:: - No coronary artery disease. - elevated LVEDP Assessment and Plan Additional Plan continue aggressive risk factor modification for CAD
== END 2021-06-27 12:01 | disposition home or self-care (01) ==
PROVIDERS: PCP Family Medicine; Visit Provider Internal Medicine Cardiovascular Disease
PROC: 4A023N7 Measurement of Cardiac Sampling and Pressure, Left Heart, Percutaneous Approach (ICD-10-PCS; CPT 93452; principal; 2021-06-27 08:30)
DX: R07.89 Other chest pain (principal); I11.9 Hypertensive heart disease without heart failure; E78.5 Hyperlipidemia, unspecified; E03.9 Hypothyroidism, unspecified; Z79.82 Long term (current) use of aspirin; K22.4 Dyskinesia of esophagus
CPT/HCPCS: 36415; 80048; 85025; 85610; 93458; C1760; C1887; C1894; G0269; J1644; J2250; J3010; J7040

== ENCOUNTER → 2021-10-14 09:09 | Outpatient (CLI) | payer BC, SELFPAY ==
--- NOTE | ~2021-10-14 | MMUS_ITS ---
EXAMINATION: MM diagnostic jillian LT w jennifer, US breast LT limited HISTORY: Six-month follow-up for probably benign left breast mass TECHNIQUE: Craniocaudal, mediolateral, and mediolateral oblique 3-D tomosynthesis images of the left breast were performed and synthetic 2-D images were generated. CAD analysis was submitted and interpr eted. High resolution limited left breast ultrasound was performed. COMPARISON: 05/13/2021, 04/22/2021, 08/02/2018 BREAST PARENCHYMAL COMPOSITION: There are scattered areas of fibroglandular density. FINDINGS: MAMMOGRAPHIC FINDINGS: There is a stable 6 mm oval, circumscribed, low density mass in the far posterior third of the breast at the 4:00 location 11 cm from the nipple. There has been no suspicious interval change. ULTRASOUND: There is a stable 5 mm x 3 circumscribed, parallel, code mass with no posterior features or internal vascularity at the 4:00 location 8 cm from the nipple. IMPRESSION: 1. Stable, probably benign left breast mass. 2. Recommend 6 month follow-up diagnostic mammogram and left breast ultrasound. BI-RADS category 3, probably benign findings. Reviewed, dictated and finalized at location A. IMPRESSION: 1. Stable, probably benign left breast mass. 2. Recommend 6 month follow-up diagnostic mammogram and left breast ultrasound. BI-RADS category 3, probably benign findings.
== END ==
PROVIDERS: PCP Family Medicine; Visit Provider Nurse Practitioner Gerontology
DX: R92.8 Other abnormal and inconclusive findings on diagnostic imaging of breast (principal)
CPT/HCPCS: 76642; 77061; 77065; G0279

== ENCOUNTER → 2022-04-28 08:48 | Outpatient (CLI) | payer BC, SELFPAY ==
--- NOTE | ~2022-04-28 | MMUS_ITS ---
EXAMINATION: MM diagnostic jillian BI w jennifer, US breast LT limited HISTORY: Trauma to the left breast. Palpable abnormality. TECHNIQUE: Additional 3-D tomosynthesis images of the breasts were performed and synthetic 2-D images were generated. CAD analysis was submitted and interpreted. High resolution Limited left breast ultr asound was performed. COMPARISON: Comparison to multiple prior studies sequentially, with oldest reviewed study dated 07/25. BREAST PARENCHYMAL COMPOSITION: BREAST PARENCHYMAL COMPOSITION: There are scattered areas of fibroglandular density. FINDINGS: MAMMOGRAPHIC FINDINGS: There are no suspicious masses, calcifications or architectural distortion in either breast to sugges t malignancy. ULTRASOUND: Limited left breast ultrasound: At 4:00, 8 cm from the nipple there is a 6 mm cyst. No suspicious mas ses to suggest malignancy. IMPRESSION: 1. No evidence for malignancy in either breast. 2. Routine yearly screening mammogram and regular clinical breast examination are recommended. BI-RADS Category 2: Benign finding(s). Reviewed, dictated and finalized at location A. ING PROFESSOR IMPRESSION: 1. No evidence for malignancy in either breast. 2. Routine yearly screening mammogram and regular clinical breast examination a re recommended. BI-RADS Category 2: Benign finding(s).
== END ==
PROVIDERS: PCP Family Medicine; Visit Provider Nurse Practitioner Gerontology
DX: R92.8 Other abnormal and inconclusive findings on diagnostic imaging of breast (principal)
CPT/HCPCS: 76642; 77062; 77066; G0279

== ENCOUNTER 2022-11-06 09:16 | Outpatient (CLI) | payer BC, SELFPAY ==
--- NOTE | ~2022-11-06 | XR_ITS ---
EXAMINATION: XR abdomen obstructive series DATE: 11/06/2022 09:34 INDICATION: Right flank pain TECHNIQUE: Upright and supine views of the abdomen were obtained. COMPARISON: None. FINDINGS: Pelvic calcifications likely reflect phleboliths. No definite urolithiasis is identified. T he bowel gas pattern is normal. Surgical clips in the right upper quadrant are likely from prior chol ecystectomy. The visualized lung bases are clear. IMPRESSION: 1. No radiographic correlate for the patient's symptoms. Reviewed, dictated and finalized at location L.
== END 2022-11-06 09:17 | disposition home or self-care (01) ==
LOC: ANHIMG 09:19
PROVIDERS: PCP Family Medicine; Visit Provider Family Medicine
DX: R14.0 Abdominal distension (gaseous) (principal)
CPT/HCPCS: 74019

== ENCOUNTER 2023-06-25 10:37 | Outpatient (CLI) | payer MEDICARE, SELFPAY ==
--- NOTE | ~2023-06-25 | XR_ITS ---
Thoracic spine: Clinical Indication: Back pain AP and lateral views were performed. No fracture is seen. There is normal alignment of the vertebrae. The intervertebral disc spaces appe ar normal. Paravertebral soft tissues appear normal. Impression: No significant abnormalities noted. Reviewed, dictated and finalized at [facility]. [employer] Impression: No significant abnormalities noted.
--- NOTE | ~2023-06-25 | XR_ITS ---
Lumbosacral Spine: AP and lateral views Clinical History: Pain Findings: The normal lordotic curve is maintained. The vertebral bodies and posterior elements are i ntact. The intervertebral disc spaces are preserved. The sacroiliac joints are normally outlined. Impression: No significant abnormality. Reviewed, dictated and finalized at [facility]. REPAIRER Impression: No significant abnormality.
== END 2023-06-25 10:38 | disposition home or self-care (01) ==
PROVIDERS: PCP Family Medicine; Visit Provider Family Medicine
DX: M54.9 Dorsalgia, unspecified (principal)
CPT/HCPCS: 72072; 72100

== ENCOUNTER 2023-09-27 17:11 | Observation (INO) | payer MEDICARE, SELFPAY ==
--- NOTE | ~2023-09-27 | CT_ITS ---
EXAMINATION: CT abdomen pelvis wo con DATE: 09/27/2023 17:58 INDICATION: rt flank pain TECHNIQUE: Computed tomography (CT) of the abdomen and pelvis was performed without intravenous contr ast. Automated exposure control and iterative reconstruction technique were employed. The dose-length product was 1048.78 mGy-cm. COMPARISON: CT abdomen 03/18/2004. FINDINGS: Lower thorax: Unremarkable Liver: Enlarged. Biliary/Gallbladder: Gallbladder is absent. No bile duct dilation. Pancreas: No mass or duct dilation. Spleen: Normal. Adrenals:No mass. Kidneys: No suspicious mass, obstructing stone, or hydronephrosis. GI tract: Moderate hiatal hernia. No small or large bowel dilation. Appendix not confidently visualiz ed. Diverticulosis without diverticulitis. Mesentery/Peritoneum: No ascites, mass, or free air. Retroperitoneum: No mass. Atherosclerotic abdominal aortic and/or arterial calcifications. Pelvis: Empty urinary bladder with mild stranding. Absent uterus. Multiple right ovarian cysts measur ing up to 2.4 cm.. Soft Tissues: Soft tissues and body wall unremarkable. Bones: No acute osseous finding. IMPRESSION: Hepatomegaly. Otherwise, no acute abdominopelvic process detected Reviewed, dictated and finalized at location K.
--- NOTE | ~2023-09-27 | US_ITS ---
EXAMINATION: US renal BI DATE: 09/28/2023 09:33 INDICATION: Acute kidney injury. TECHNIQUE: Multiple ultrasound grayscale images of the kidneys were obtained. COMPARISON: CT abdomen and pelvis 09/27/2023 FINDINGS: The right kidney measures 11.5 x 4.6 x 4.9 cm. The left kidney measures 11.8 x 5.5 x 5.1 cm. The kidn eys demonstrate normal parenchymal echogenicity. There is no hydronephrosis. The bladder is normal. IMPRESSION: 1. Normal kidneys. No hydronephrosis. Reviewed, dictated and finalized at location A.
[2023-09-27 17:19] VITALS: BP 128/74; PULSE 91; RESP 18; TEMP 36.6; O2SAT 95
[2023-09-27 18:08] LABS: Basophils Absolute Auto 0.1 K/mm3 (0.0-0.1); Basophils Percent Auto 0.8 % (0.2-1.2); Eosinophils Absolute Auto 0.1 K/mm3 (0-0.3); Eosinophils Percent Auto 0.8 % (0-4.4); Hematocrit 39.9 % (37.0-47.0); Hemoglobin 13.5 g/dL (12.0-15.0); Immature Granulocyte Absolute 0.05 K/mm3 (0.00-0.031); Immature Granulocyte Percent A 0.4 % (0-0.5); Lymphocytes Absolute Auto 2.36 K/mm3 (0.9-3.2); Lymphocytes Percent Auto 19.9 % (18.3-44.2); Mean Corpuscular HGB Conc 33.8 g/dl (32-36); Mean Corpuscular Hemoglobin 29.6 pg (26-34); Mean Corpuscular Volume 87.5 fl (80-100); Mean Platelet Volume 9.3 fl (7.4-10.4); Monocytes Absolute Auto 0.9 K/mm3 (0.1-0.6); Monocytes Percent Auto 7.4 % (2.6-8.5); Neutrophils Absolute Auto 8.4 K/mm3 (1.3-6.7); Neutrophils Percent Auto 70.7 % (45.5-73.1); Platelet Count Result 256 k/mm3 (150-375); Red Blood Count 4.56 M/mm3 (4.2-5.4); Red Cell Distribution Width 12.3 % (11.5-14.5); White Blood Count 11.9 K/mm3 (4.5-10.0)
[2023-09-27] MEDS: MORPHINE SULFATE (*CRX) 4 MG/ML INJ IV PUSH (18:08)
[2023-09-27] MEDS: ONDANSETRON INJ 4 MG/2 ML VIAL IV PUSH (18:08)
[2023-09-27] MEDS: SODIUM CHLORIDE 0.9% IV 1,000 ML 999 ML IV CONT (18:08)
[2023-09-27 18:19] LABS: Alanine Aminotransferase 27 U/L (6-35); Albumin Level 5.1 g/dL (3.5-5.1); Alkaline Phosphatase 68 U/L (38-126); Anion Gap 14 mmol/L (4-12); Aspartate Amino Transferase 36 U/L (14-36); Bilirubin,Total 0.9 mg/dL (0.2-1.3); Blood Urea Nitrogen 21 mg/dL (7-17); Calcium 10.3 mg/dL (8.4-10.2); Carbon Dioxide 22 mmol/L (22-30); Chloride 104 mmol/L (98-107); Estimated CRCL calculation 29 ml/min; Estimated Glomerular Filt Rate 22; Glucose 114 mg/dL (65-110); Potassium 4.5 mmol/L (3.4-5.0); Sodium 140 mmol/L (137-145)
[2023-09-27 18:32] LABS: Prothrombin Time 13.3 Seconds (11.1-14.7)
[2023-09-27 18:46] VITALS: BP 124/61; PULSE 70; RESP 14; O2SAT 98
--- NOTE | 2023-09-27 18:46 | ED.BACK ---
HPI - Back Pain/Injury General Chief Complaint: Back Pain/Injury Stated Complaint: R flank pain, near syncope Time Seen by Provider: 09/27/23 17:30 Source: patient Mode of arrival: ambulatory Limitations: no limitations History of Present Illness HPI Narrative: 67-year-old with a history of hypertension, CVA here with the complaints of right flank pain which has been ongoing for past 15 months. Patient states that she had a number x-rays and scans which did not show the cause of her pain. However since the last 2 days she has been having increased amount of pain. She states that she takes Advil which helps with the pain in since this morning the pain has been steady and she also states that she feels lightheaded. She denies any fever or chills , denies urinary symptoms. MD elicited complaint: back pain Pertinent past history: prior back pain Onset (ago): month(s) (15) Timing: constant Severity: moderate Similar Symptoms Previously: Yes Location: lumbar spine Exacerbating factors: none Relieving factors: none Associated symptoms: denies other symptoms Related Data Home Medications Medication Instructions Recorded Confirmed travoprost 0.004 % eye drops 1 drop ophthalmic (eye) QPM 11/07/19 11/06/22 (Travatan Z) multivitamin with minerals-folic 1 tablet PO DAILY 11/01/20 11/06/22 acid 0.4 mg tablet (Adult One Daily Multivitamin) Calcium With Vitamin D3 1 tablet PO DAILY 06/26/21 11/06/22 fish, borage, flaxseed oils-omega 1 cap PO DAILY 06/26/21 11/06/22 3,6,9 cb #1 400 mg-400 mg-400 mg cap (Triple [place] 3-6-9) lutein 40 mg capsule 40 mg PO DAILY 06/26/21 11/06/22 Allergies Allergy/AdvReac Type Severity Reaction Status Date / Time No Known Allergies Allergy Unknown Verified 09/27/23 17:25 Review of Systems Review of Systems: All systems reviewed & are unremarkable except as noted in HPI and below Constitutional: Constitutional: Reports no additional constitutional complaints Eyes: Eyes: Reports no additional eye complaints ENT: Reports system reviewed and no additional complaints, except as documented Cardiovascular: Cardiovascular: Reports no additional cardiovascular complaints Respiratory: Respiratory: Reports no additional respiratory complaints Gastrointestinal: Gastrointestinal: Reports no additional gastrointestinal complaints Integumentary/Breasts: Skin/Breast: Reports system reviewed and no additional complaints, except as docu Neurologic: Reports system reviewed and no additional complaints, except as documented Psychiatric: Psychiatric: Reports no additional psychiatric complaints [facility] Past Medical History Medical History (Updated 09/27/23 @ 18:53 by Arturo Antunez MD) Acquired hammer toe Acute gastritis Acute recurrent maxillary sinusitis Adult hypothyroidism Benign essential HTN Breast mass Breast screening Bronchitis Burning mouth syndrome Contusion of coccyx Cough Cough due to bronchospasm Dystonia Elevated BP without diagnosis of hypertension Elevated intracranial pressure Esophageal dyskinesia Esophageal dyskinesia Essential (primary) hypertension Flu-like symptoms Gallbladder disorder Gastroenteritis HH (hiatus hernia) Hyperlipidemia Hypothyroidism (acquired) IFG (impaired fasting glucose) Left lower quadrant pain Loss of smell Loss of taste Mixed hyperlipidemia Paresthesia and pain of left extremity Tick bite Vitamin D deficiency Surgical History Surgical History History of appendectomy History of bunionectomy History of cholecystectomy History of repair of ACL bilateral Hx of colonoscopy Hx of hysterectomy Family History Family History Mother Diabetes mellitus Hypertension Brain tumor Heart disease Father Hypertension Acute myocardial infarction Alcoholism Cancer Heart disease Sibling Patient's sister
[2023-09-27] MEDS: SODIUM CHLORIDE 0.9% IV 1,000 ML 125 ML IV CONT (18:58)
[2023-09-27 19:18] LABS: Appearance Urine Cloudy (Clear); Bacteria Urine 1+ /hpf; Bilirubin Urine Negative (Negative); Blood Urine Negative (Negative); Color Urine Yellow (Yellow); Glucose Urine UA Negative (Negative); Ketones Urine Trace mg/dL (Negative); Leukocyte Esterase Ur 2+ LEU/UL (Negative); Mucus Urine Present /lpf; Need Manual Microscopic Reviewed; Nitrate Urine Negative (Negative); Non Pathogenic Casts >20; Protein Urine 1+ mg/dL (Negative); RBC Urine 0-2 /hpf (0-2); Specific Grav Ur 1.018 (1.001-1.035); Squamous Epithelial Cell Urine Moderate /hpf (Few)
[2023-09-27 19:20] LABS: Add Urine Microscopic? YES
[2023-09-27 19:59] VITALS: BP 108/61; PULSE 68; RESP 18; O2SAT 93
[2023-09-27 20:27] VITALS: BMI 33.3
--- NOTE | 2023-09-27 20:27 | PM.IMHP ---
H&P: HPI History of Present Illness Date/Time: 09/27/23 20:45 Chief Complaint: Near-syncope, flank pain. Narrative: This is a very pleasant 67-year-old female with history of TIA, dyslipidemia, hypothyroidism, gastroesophageal reflux disease, hiatal hernia, and esophageal dyskinesia who presented to the emergency department for evaluation of near-syncope and flank pain. The patient provides the following history. She reports ongoing problems with pain in the right mid back for upwards of 15 to 16 months. She has seen her doctor and had a pretty extensive workup without significant findings. More recently she went to a chiropractor and had adjustments and other treatments which seemed to help a knot which was in the same area as her discomfort however she continues to have daily discomfort in the area. She takes an Aleve almost daily for the symptoms which seems to help. Occasionally she will take a Tylenol or Advil as well. The last several days she has had increasing pain ?which feels like bruising over my right kidney? with occasional sharp, jabbing pain. It has not been severe enough to limit her activities and in fact she was able to golf 18 holes today. Towards the end of her golf game she started to feel lightheaded and when she bent over she felt her vision darkening a bit. It was very hot today and she reports sweating quite a bit but she had been trying to stay hydrated. While driving home she once again had feelings of near-syncope and came in for evaluation. She denies fever, cold and flu symptoms, chest and pleuritic pain, palpitations, abdominal pain, nausea, vomiting, diarrhea, dysuria, and hematuria. In the ED: She was afebrile on arrival with stable vital signs. Labs were significant for a WBC count of 11.9, hemoglobin 13.5, platelet 256, BUN 21, creatinine 2.20, calcium 10.3, sodium 140, potassium 4.5, total protein 9.0. Urine was cloudy with 1+ protein, trace ketones, 2+ leukocyte esterase, 11 to 20 WBC, 1+ bacteria, greater than 20 casts, and moderate squamous cells noted on microscopy. CT of the abdomen pelvis showed hepatomegaly but no other acute abdominal pelvic process. Review of Systems Review of Systems: Twelve systems were reviewed. She has GERD which is typically well controlled on her home medications. It is not necessarily been worse recently however she has noticed an increase in belching. No dysphagia or concerns for aspiration. Weight has remained stable. She has not noticed any blood in her stools. No difficulties urinating or feelings as though she could not empty her bladder. Except as documented, all other systems were reviewed and are negative. [facility] Past Medical History Medical History (Updated 09/28/23 @ 14:49 by Christina Elizabeth PA-C) Adult hypothyroidism Burning mouth syndrome Esophageal dyskinesia Essential (primary) hypertension Gastroesophageal reflux Hiatal hernia Hypothyroidism (acquired) Mixed hyperlipidemia Vitamin D deficiency Surgical History Surgical History (Updated 09/28/23 @ 14:49 by Christina Elizabeth PA-C) History of appendectomy History of bunionectomy History of cholecystectomy History of colonoscopy History of hysterectomy History of repair of ACL bilateral Family History Family History Mother Diabetes mellitus Hypertension Brain tumor Heart disease Father Hypertension Acute myocardial infarction Alcoholism Cancer Heart disease Sibling Patient's sister is in good health Hypertension Sibling Hypertension Diabetes mellitus Grandparent Cancer Cerebrovascular accident Social History Social History (Updated 09/28/23 @ 14:50 by Christina Elizabeth PA-C) Social History: Surrogate medical decision maker: Norma Ramires, significant other. Code status: Full code. Smoking status: Never smoker Second hand tobacco smoke exposure: No Alcohol intake: current Drinks
[2023-09-27 21:29] VITALS: BP 147/60; PULSE 73; RESP 18; TEMP 36.7; O2SAT 98; BMI 33.3
[2023-09-28] VITALS (7 sets, daily range): BP systolic 123–139; BP diastolic 50–70; PULSE 62–73; RESP 16–20; TEMP 36–36.7; O2SAT 95–97
[2023-09-28] MEDS: LEVOTHYROXINE SODIUM 75 MCG TABLET PO (04:06)
[2023-09-28] MEDS: LATANOPROST 0.005% OP SOLN 2.5 ML BTL 1 DROP EACH EYE (04:06)
[2023-09-28] MEDS: SODIUM CHLORIDE 0.9% IV 1,000 ML 125 ML IV CONT (04:06)
[2023-09-28 06:30] LABS: Hematocrit 33.2 % (37.0-47.0); Mean Corpuscular HGB Conc 33.1 g/dl (32-36); Mean Corpuscular Hemoglobin 30.1 pg (26-34); Mean Platelet Volume 9.5 fl (7.4-10.4); Platelet Count Result 197 k/mm3 (150-375); Red Blood Count 3.65 M/mm3 (4.2-5.4); Red Cell Distribution Width 12.4 % (11.5-14.5)
[2023-09-28 06:48] LABS: Anion Gap 7 mmol/L (4-12); Blood Urea Nitrogen 22 mg/dL (7-17); Calcium 8.4 mg/dL (8.4-10.2); Carbon Dioxide 24 mmol/L (22-30); Chloride 108 mmol/L (98-107); Creatine Kinase 144 U/L (30-135); Estimated CRCL calculation 48 ml/min; Estimated Glomerular Filt Rate 41; Glucose 106 mg/dL (65-110); Potassium 4.2 mmol/L (3.4-5.0); Sodium 139 mmol/L (137-145)
[2023-09-28] MEDS: CLOPIDOGREL BISULFATE 75 MG TABLET BY MOUTH (08:21)
[2023-09-28] MEDS: ROSUVASTATIN 20 MG TABLET BY MOUTH (08:21)
[2023-09-28] MEDS: PANTOPRAZOLE 40 MG TABLET PO (08:22)
[2023-09-28] MEDS: ACETAMINOPHEN 325 MG TABLET 650 MG PO (08:27)
--- NOTE | 2023-09-28 14:01 | PM.DS ---
DS: Admitting Diagnosis Discharge Date 09/28/23 Admitting Diagnosis Acute kidney injury Near syncope Abnormal urinalysis Hepatomegaly Hypothyroidism GERD DS: Discharge Diagnosis Discharge Diagnosis (1) Acute kidney injury: Code(s): N17.9 - Acute kidney failure, unspecified Status: Acute (2) Near syncope: Code(s): R55 - Syncope and collapse Status: Acute (3) Abnormal urinalysis: Code(s): R82.90 - Unspecified abnormal findings in urine Status: Acute (4) Hepatomegaly: Code(s): R16.0 - Hepatomegaly, not elsewhere classified Status: Acute (5) Hypothyroidism: Code(s): E03.9 - Hypothyroidism, unspecified Status: Acute (6) Gastroesophageal reflux: Code(s): K21.9 - Gastro-esophageal reflux disease without esophagitis Status: Acute DS: Summary Hospital Course Reason for hospitalization: Acute kidney injury Near syncope Abnormal urinalysis Hepatomegaly Hypothyroidism GERD Hospital Course: 67-year-old female with history of TIA, dyslipidemia, hypothyroidism, gastroesophageal reflux disease, hiatal hernia, and esophageal dyskinesia who presented to the emergency department for evaluation of near-syncope and flank pain. Of note patient was outside in the heat sweating all day playing an 18 hole round of golf. On lab work patient noted to have an KENDRICK likely secondary to dehydration. She received IV fluids and the BUN/Cr improved. Renal US was unremarkable. Orthostatic vitals signs WNL. Patient no longer feeling lightheaded or dizzy prior to discharge. She continues to endorse mid back pain that is likely musculoskeletal in origin. CT of the abdomen and pelvis did not show any acute findings. Hepatomegaly was noted but not likely the cause of her ongoing symptoms.?She states she has been seeing a chiropractor for her back pain which is helping and is taking muscle relaxers prescribed by PCP. Patient will obtain a CMP to reevaluate BUN/Cr outpatient. She will follow up with PCP in 1 week. Patient discharged home in stable condition. She will obtain a CMP to reevaluate BUN/Cr and follow up with her PCP in 1 week. Status at Discharge Functional status at discharge: independent ambulation Time Spent with Patient Time attestation: Total time spent providing and/or coordinating discharge services: Time spent: Greater than 30 minutes Exam Narrative: AF HR 65 RR 16 SpO2 97 BP 137/70 General: female in no acute respiratory distress who is nontoxic appearing, lying semi recumbent in bed. HEENT: Normocephalic. Atraumatic. Pupils equal round reactive to light. Extraocular movement intact. No facial asymmetry. Chest: Lungs are clear to auscultation bilaterally. No wheezes or crackles. CV: Heart was regular rate and rhythm. S1-S2. No murmurs, gallops, or rubs. Abd: Abdomen was soft. Nontender. Nondistended. Positive bowel sounds. Ext: No clubbing, cyanosis, or edema. 2+ DP pulses bilaterally. Neuro: Patient is alert and oriented x4. Strength is 5/5 in both upper and lower extremities. Cranial nerves 2-12 are intact. Speech is clear. Psych: Normal mood and affect. Patient is pleasant and cooperative. Skin: Warm and dry. No rashes noted. DS: Data Data Completed and Pending Completed studies during hospitalization: Renal US Abdomen/pelvis CT Labs on day of discharge: Labs from last 24 hours 09/28/23 09/27/23 09/27/23 06:04 18:59 18:02 WBC 7.0 11.9 H RBC 3.65 L 4.56 Hgb 11.0 L 13.5 Hct 33.2 L 39.9 MCV 91.0 87.5 MCH 30.1 29.6 MCHC 33.1 33.8 RDW 12.4 12.3 Plt Count 197 256 MPV 9.5 9.3 Immature Gran % (Auto) 0.4 Neut % (Auto) 70.7 Lymph % (Auto) 19.9 Mitchell % (Auto) 7.4 Eos % (Auto) 0.8 Baso % (Auto) 0.8 Lymph # (Auto) 2.36 Mitchell # (Auto) 0.9 H Eos # (Auto) 0.1 Baso # (Auto) 0.1 Abs Immat Gran (auto) 0.05 H Absolute Neuts (auto) 8.4 H Absolute Nucleated RBC 0.000 Nucleated RBC %
--- NOTE | 2023-09-29 13:05 | PC.NURSE ---
Urine culture growing colonizers commonly found on external and internal genitalia. BROOKE Ulloa aware.
== END 2023-09-28 14:30 | disposition home or self-care (01) ==
LOC: ANHED 18:53 → ANH3MEDSUR 19:37
PROVIDERS: Physician Assistant; Admitting Provider Internal Medicine; Emergency Provider Family Medicine; PCP Family Medicine; Visit Provider Internal Medicine
DX: N17.9 Acute kidney failure, unspecified (principal); R55 Syncope and collapse; R82.90 Unspecified abnormal findings in urine; R16.0 Hepatomegaly, not elsewhere classified; I10 Essential (primary) hypertension; E03.9 Hypothyroidism, unspecified; E78.2 Mixed hyperlipidemia; E55.9 Vitamin D deficiency, unspecified; Z86.73 Personal history of transient ischemic attack (TIA), and cerebral infarction without residual deficits; Z79.82 Long term (current) use of aspirin; Z79.02 Long term (current) use of antithrombotics/antiplatelets
CPT/HCPCS: 36415; 74176; 76775; 80048; 80053; 81001; 82550; 83735; 84443; 85025; 85027; 85610; 87077; 87086; 87088; 96361; 96374; 96375; 99285; A9270; G0378; J2270; J2405; J7030

== ENCOUNTER 2023-11-04 08:35 | Outpatient (CLI) | payer MEDICARE, SELFPAY ==
--- NOTE | ~2023-11-04 | MR_ITS ---
EXAMINATION: MR brain/brain stem wo con DATE: 11/04/2023 09:55 INDICATION: Persistently of other healed physical injury. TECHNIQUE: Magnetic resonance imaging (MRI) of the brain and brainstem was performed without intraven ous contrast. COMPARISON: Brain MRI 11/02/2020, head CT 11/01/2020 FINDINGS: There are scattered areas of nonspecific increased T2-weighted signal intensity in the cere bral white matter, which is within normal limits for the patient's age. There is no intracranial hemo rrhage, acute infarction, or abnormal intracranial mass lesion. The ventricles are normal in size. Th ere is a mucous retention cyst in left maxillary sinus. The mastoid air cells are normal. The orbits are normal. IMPRESSION: 1. Normal aging brain. Reviewed, dictated and finalized at location A. IMPRESSION: 1. Normal aging brain.
--- NOTE | ~2023-11-04 | MR_ITS ---
EXAMINATION: MRA brain wo con DATE: 11/04/2023 09:40 INDICATION: Transient cerebral ischemic attack, unspecified. Paresthesias. TECHNIQUE: Magnetic resonance angiography (MRA) of the brain was performed without intravenous contra st with T1-weighted SPGR by the 3D [id number] technique. Maximum intensity projection 3D-reconstr uctions were obtained. COMPARISON: None. FINDINGS: The vertebral arteries are codominant. There is no significant stenosis of basilar artery or the post erior cerebral arteries. There is no significant stenosis of the intracranial internal carotid arteri es or anterior or middle cerebral arteries. Anterior communicating artery is normal. There is no aneu rysm. IMPRESSION: 1. Normal MRA. Reviewed, dictated and finalized at location A. IMPRESSION: 1. Normal MRA.
--- NOTE | ~2023-11-04 | US_ITS ---
EXAMINATION: US carotid duplex BI DATE: 11/04/2023 09:41 INDICATION: Transient cerebral ischemic attack, unspecified. TECHNIQUE: Grayscale, color Doppler, and pulsed Doppler images of the cervical carotid arteries were obtained. The degree of vessel stenosis is placed in one of the following categories: normal, <50%, 5 0-69%, >=70% but less than near-occlusion, near-occlusion, or total occlusion. Note that percent sten osis relative to normal distal artery lumen diameter is indirectly measured from velocity measurement s as described by Jozef, et al. Radiology 2003; 229:340-346. COMPARISON: None. FINDINGS: RIGHT: The right common carotid artery (CCA) peak systolic velocity (PSV) is 66 cm/s. The right internal car otid artery (ICA) PSV is 111 cm/s. The right ICA end-diastolic velocity (EDV) is 46 cm/s. The right I CA/CCA PSV ratio is 1.7. Grayscale and color Doppler images yield an estimate of <50% diameter reduct ion from plaque in the ICA. There is antegrade flow in the right vertebral artery. LEFT: The left CCA PSV is 75 cm/s. The left ICA PSV is 57 cm/s. The left ICA EDV is 22 cm/s. The left ICA/C CA PSV ratio is 0.8. Grayscale and color Doppler images yield an estimate of <50% diameter reduction from plaque in the ICA. There is antegrade flow in the left vertebral artery. IMPRESSION: 1. <50% stenosis in the right internal carotid artery. 2. <50% stenosis in the left internal carotid artery. Reviewed, dictated and finalized at location A.
== END 2023-11-04 08:36 | disposition home or self-care (01) ==
PROVIDERS: PCP Family Medicine; Visit Provider Psychiatry & Neurology Neurology
DX: I65.23 Occlusion and stenosis of bilateral carotid arteries (principal); Z87.828 Personal history of other (healed) physical injury and trauma
CPT/HCPCS: 70544; 70551; 93880

== ENCOUNTER 2023-12-18 20:40 | Emergency (ER) | payer MEDICARE, SELFPAY ==
[2023-12-18 20:55] VITALS: BP 114/85; PULSE 104; RESP 18; TEMP 36.6; O2SAT 98
[2023-12-18] MEDS: ONDANSETRON HCL ODT 4 MG TABLET PO (23:02)
--- NOTE | 2023-12-18 23:21 | ED.EPISTAXIS ---
HPI - Epistaxis General Chief complaint: Epistaxis Stated complaint: nose bleed since 1000 History of Present Illness HPI Narrative: Patient presenting here with nose bleed, she has had several nosebleeds since September but this has been the most persistent, she is on Plavix, denies any recent trauma. Has been on intermittent since earlier today, it finally stopped while she was in the waiting room here. Slightly nauseous from the blood she swallowed. Related Data Home Medications Medication Instructions Recorded Confirmed travoprost 0.004 % eye drops 1 drop ophthalmic (eye) QPM 11/07/19 10/26/23 (Travatan Z) levothyroxine 88 mcg tablet 75 mcg PO DAILY 09/27/23 10/26/23 Allergies Allergy/AdvReac Type Severity Reaction Status Date / Time No Known Allergies Allergy Unknown Verified 12/18/23 20:58 Review of Systems Review of Systems: All systems reviewed & are unremarkable except as noted in HPI and below PMFSH Past Medical History Medical History (Updated 12/18/23 @ 22:58 by Veronique Araujo MD) Adult hypothyroidism Burning mouth syndrome Cerebrovascular disease Esophageal dyskinesia Essential (primary) hypertension Gastroesophageal reflux Hiatal hernia Hypothyroidism (acquired) MCI (mild cognitive impairment) Mixed hyperlipidemia Vitamin D deficiency Surgical History Surgical History History of appendectomy History of bunionectomy History of cholecystectomy History of colonoscopy History of hysterectomy History of repair of ACL bilateral Family History Family History Mother Diabetes mellitus Hypertension Brain tumor Heart disease Father Hypertension Acute myocardial infarction Alcoholism Cancer Heart disease Sibling Patient's sister is in good health Hypertension Sibling Hypertension Diabetes mellitus Grandparent Cancer Cerebrovascular accident Social History Social History Social History: Surrogate medical decision maker: Norma Ramires, significant other. Code status: Full code. Smoking status: Never smoker Second hand tobacco smoke exposure: No Alcohol intake: current Alcohol use details: Socially Substance use: never Substance use type: does not use Do You Feel Safe in your Home?: Yes Lack of Transportation: No Lack of Food: Never True Current Housing: I Have Housing Concerned About Future Housing: No Difficulty Paying Gas/Electric Bills: No Difficulty Paying for Meds: No Currently Unemployed: No Education: High School Diploma/GED Difficulty w/ Childcare or Family Care: No Living arrangements: with family Occupation/Education: retired Gender identity (if verbalized by the patient): Female Sexual Orientation (if Verbalized by the Patient): Straight or Heterosexual Spiritual care concerns: No Exam Narrative: EXAMINATION OF ORGAN SYSTEMS/BODY AREAS: Constitutional: Vital signs per nursing GENERAL:[No acute distress, non-toxic appearing.] HEAD: Normal with no signs of head trauma. EYES: EOMI, conjunctiva normal ENT: Some dried blood in left nares LUNGS: Nonlabored breathing. HEART: [Regular rate and rhythm] ABD: no distension EXT: Normal range of motion SKIN: [No rashes or lesions.] NEURO: [Alert and oriented x 3. No gross focal sensory or strength deficits.] PSYCH: Normal affect Course Vital Signs Vital signs: Vital Signs Temperature 97.9 F 12/18/23 20:55 Pulse Rate 104 H 12/18/23 20:55 Respiratory Rate 18 12/18/23 20:55 Blood Pressure 114/85 12/18/23 20:55 Pulse Oximetry 98 12/18/23 20:55 Oxygen Delivery Room Air 12/18/23 20:55 Temperature 97.9 F 12/18/23 20:55 Pulse Rate 104 H 12/18/23 20:55 Respiratory Rate 18 12/18/23 20:55 Blood Pressure 114/85 12/18/23 20:55 Pulse Oxi
== END 2023-12-18 23:13 | disposition home or self-care (01) ==
PROVIDERS: Emergency Provider Emergency Medicine; PCP Family Medicine
DX: R04.0 Epistaxis (principal); I10 Essential (primary) hypertension; I67.9 Cerebrovascular disease, unspecified; E03.9 Hypothyroidism, unspecified; E78.2 Mixed hyperlipidemia; E55.9 Vitamin D deficiency, unspecified; K21.9 Gastro-esophageal reflux disease without esophagitis; K44.9 Diaphragmatic hernia without obstruction or gangrene; G31.84 Mild cognitive impairment of uncertain or unknown etiology; Z90.49 Acquired absence of other specified parts of digestive tract; Z90.710 Acquired absence of both cervix and uterus; Z79.02 Long term (current) use of antithrombotics/antiplatelets; Z79.899 Other long term (current) drug therapy
CPT/HCPCS: 99283; A9270

== ENCOUNTER 2024-03-31 13:46 | Outpatient (CLI) | payer MEDICARE, SELFPAY ==
--- NOTE | ~2024-03-31 | XR_ITS ---
HISTORY: M25.511 - Pain in right shoulder, no inj COMPARISON: None TECHNIQUE: 4 views of the right shoulder were performed FINDINGS: No acute fracture. The glenohumeral and acromioclavicular joint spaces are narrowed, but otherwise maintained. The visualized portion of the adjacent right lung is clear. The humeral head is well seated within the glenoid fossa. IMPRESSION: No acute fracture or anterior dislocation. Reviewed, dictated and finalized at location A. EN[facility] SPECIALIST
== END 2024-03-31 13:47 | disposition home or self-care (01) ==
PROVIDERS: PCP Family Medicine; Visit Provider Student in an Organized Health Care Education/Training Program
DX: M25.511 Pain in right shoulder (principal)
CPT/HCPCS: 73030

== ENCOUNTER 2024-04-11 13:48 | Outpatient (CLI) | payer MEDICARE, SELFPAY | END 2024-04-11 13:49 | disposition home or self-care (01) | LOC: ANHAUDIO 13:49 | PROVIDERS: PCP Family Medicine; Visit Provider Student in an Organized Health Care Education/Training Program | DX: H91.90 Unspecified hearing loss, unspecified ear (principal); H93.13 Tinnitus, bilateral | CPT/HCPCS: 92557; 92567 ==

== ENCOUNTER 2024-04-19 12:54 | Outpatient (CLI) | payer MEDICARE, SELFPAY ==
--- NOTE | ~2024-04-19 | CT_ITS ---
CT of the Abdomen and Pelvis: Indication: Abdominal pain Technique: 2.5 mm axial scans were obtained through the abdomen and pelvis following intravenous adm inistration of 100 cc of Omnipaque 350. Dose reduction technique was used on this scan by utilizing a utomated exposure control and iterative reconstruction technique. The dose-length product (DLP) was 9 24.84 mGy-cm. COMPARISON: 09/27/2023 Findings: Scans through the lung bases are unremarkable. The liver, spleen, pancreas, adrenals and kidneys are within normal limits. Cholecystectomy clips are present. There are atherosclerotic calcifications of the aorta. No lymphadenopathy. No bowel obstruction or bowel wall thickening. There is no evidence to suggest acute appendicitis. Images through the pelvis were performed. Urinary bladder unremarkable. Status post hysterectomy. Sta ble cystic mass in the pelvis which could be postoperative in nature such as peritoneal inclusion cys t or seroma versus ovarian cyst. Impression: No acute abnormality. Stable cystic mass in the pelvis, which could be postoperative related to prior hysterectomy (such as peritoneal inclusion cyst or seroma) versus ovarian cyst. Reviewed, dictated and finalized at location . C THERAPIST Impression: No acute abnormality. Stable cystic mass in the pelvis, which could be postoperative related to prior hysterectomy (such as peritoneal inclusion cyst or seroma) versus ovarian cyst .
[2024-04-19 13:21] LABS: Estimated Glomerular Filt Rate 55
== END 2024-04-19 12:55 | disposition home or self-care (01) ==
PROVIDERS: PCP Family Medicine; Visit Provider Family Medicine
DX: R10.11 Right upper quadrant pain (principal); R16.0 Hepatomegaly, not elsewhere classified; G89.29 Other chronic pain; Z90.49 Acquired absence of other specified parts of digestive tract
CPT/HCPCS: 74177; Q9967

== ENCOUNTER 2024-04-28 14:03 | Emergency (ER) | payer MEDICARE, SELFPAY ==
--- NOTE | ~2024-04-28 | CT_ITS ---
EXAMINATION: CT abdomen pelvis w con DATE: 04/28/2024 16:45 INDICATION: Upper abdominal pain. Nausea, vomiting, and diarrhea. TECHNIQUE: Computed tomography (CT) of the abdomen and pelvis was performed with 100 mL Omnipaque 350 intravenous contrast. Automated exposure control and iterative reconstruction technique were employe d. The dose-length product was 1273.52 mGy-cm. COMPARISON: CT abdomen and pelvis 04/19/2024, 09/27/2023, 03/18/24 FINDINGS: The visualized portions of lung bases demonstrate mild atelectasis. No pleural effusion. Ca rdiomegaly is noted. No pericardial effusion. There is a small sliding hiatal hernia. The liver and s pleen are normal. There are changes of cholecystectomy. The pancreas, adrenal glands, and left kidney are normal. There is a 5 mm cyst in right kidney. There is diverticulosis of the colon without evide nce of diverticulitis. There are no dilated loops of bowel. The appendix is nonvisualized. There are no pathologically enlarged lymph nodes. There is no free intraperitoneal fluid. There is a 2.8 cm cys t in right ovary. There is mild thoracic and lumbar spondylosis. IMPRESSION: 1. Small sliding hiatal hernia. 2. 2.8 cm cyst in the right ovary, stable from 09/27/2023, likely benign. Reviewed, dictated and finalized at location A. E MIXER
[2024-04-28 14:05] VITALS: BP 98/35; PULSE 86; RESP 18; TEMP 36.4; O2SAT 100
--- NOTE | 2024-04-28 14:42 | ED.NAVMDI ---
HPI - Nausea/Vomiting/Diarrhea General Chief complaint: Nausea/Vomiting/Diarrhea <GINNY Villegas Last Filed: 04/28/24 14:53> Stated complaint: N/V/D <Meaghan Dhillon PA-C - Last Filed: 04/28/24 14:53> Time Seen by Provider: 04/28/24 14:42 <GINNY Villegas Last Filed: 04/28/24 14:53> Focused HPI: Patient is a 68 y/o female who presents to the ED via EMS with c/o N/V. Patient reports she began feeling nauseous initially last night, but developed vomiting around 4:00 a.m. this morning. Has had persistent nausea with vomiting and dry heaving since then. Also reports having profuse diarrhea today. Has been unable to keep down any food or drink today w/o having near immediate vomiting or diarrhea. Reports nando upper abdomen pain, mid back pain, headaches, lightheadedness, body aches, chills. Denies known fever. Denies cough. Denies known sick contacts. Was given [id number] en route to ED by EMS. Patient reports she has been dealing with pain in her right lower abdomen for at least the past 1 year[address] She had a CT scan of her abdomen last week which was normal. GENERAL: Mildly ill-appearing, obese, and in no acute distress. HEAD: Normocephalic, atraumatic. CHEST: Clear to auscultation. ?No respiratory distress. HEART: Regular rate and rhythm.? ABD: TTP in R mid to lower abdomen, soft, nondistended, no rebound tenderness. Normoactive bowel sounds. NEURO: ?Alert and oriented x3. Patient screened in triage and initial orders placed.? ?Additional care and disposition to be based upon?diagnostic testing and treatment. <GINNY Villegas Last Filed: 04/28/24 14:53> Source: patient <GINNY Villegas Last Filed: 04/28/24 14:53> Mode of arrival: EMS <GINNY Villegas Last Filed: 04/28/24 14:53> Limitations: no limitations <Meaghan Dhillon PA-C - Last Filed: 04/28/24 14:53> History of Present Illness HPI Narrative: Agree with HPI <Castro Toribio MD - Last Filed: 04/28/24 18:57> Related Data Home medications: Home Medications ?Medication ?Instructions ?Recorded ?Confirmed ?Last Taken ?Type travoprost 0.004 % eye drops 1 drop ophthalmic (eye) QPM 11/07/19 03/31/24 06/26/21 History (Travatan Z) <Meaghan Dhillon PA-C - Last Filed: 04/28/24 14:53> Allergies/Adverse reactions: Allergies Allergy/AdvReac Type Severity Reaction Status Date / Time No Known Allergies Allergy Unknown Verified 03/31/24 13:10 <Meaghan Dhillon PA-C - Last Filed: 04/28/24 14:53> Review of Systems Review of Systems: All systems reviewed & are unremarkable except as noted in HPI and below <Castro Toribio MD - Last Filed: 04/28/24 18:57> Constitutional: Constitutional: Reports no additional constitutional complaints <Castro Toribio MD - Last Filed: 04/28/24 18:57> [facility] Past Medical History Medical History: Medical History (Updated 04/28/24 @ 18:40 by Castro Toribio MD) Cerebrovascular disease MCI (mild cognitive impairment) Hiatal hernia Gastroesophageal reflux Acute kidney injury KENDRICK (acute kidney injury) Vitamin D deficiency Mixed hyperlipidemia Essential (primary) hypertension Adult hypothyroidism Burning mouth syndrome Acute bronchitis Hypothyroidism (acquired) Esophageal dyskinesia <Meaghan Dhillon PA-C - Last Filed: 04/28/24 14:53> Surgical History Surgical History: Surgical History History of colonoscopy History of hysterectomy History of repair of ACL bilateral History of cholecystectomy History of appendectomy History of bunionectomy <Meaghan Dhillon PA-C - Last Filed: 04/28/24 14:53> Family History Family History: Family History Mother Diabetes mellitus Hypertension Brain tumor Heart disease Father Hypertension Acute myocardial infarction Alcoholism Cancer Heart disease Sibling Patient's sister is in good health Hypertension Sibling Hypertension Diabetes mellitus Grandparent Cancer Cerebrovascular accident <Meaghan Dhillon PA-C - Last Filed: 04/28/24 14:53> Social History Social History: Social History Social History: Surrogate medical decision maker: Norma Ramires, significant other. Code status: Full code. Smoking status: Never smoker Second hand tobacco smoke exposure: No Alcohol intake: current Alcohol use details: Socially Substance use: never Substance use type: does not use Do You Feel Safe in your Home?: Yes Lack of Transportation: No Lack of Food: Never True Current Housing: I Have Housing Concerned About Future Housing: No Difficulty Paying Gas/Electric Bills: No Difficulty Paying for Meds: No Currently Unemployed: No Education: High School Diploma/GED Difficulty w/ Childcare or Family Care: No Living arrangements: with family Occupation/Education: retired Gender identity (if verbalized by the patient): Female Sexual Orientation (if Verbalized by the Patient): Straight or Heterosexual Spiritual care concerns: No <Meaghan Dhillon PA-C - Last Filed: 04/28/24 14:53> Exam Narrative: GENERAL: Well-appearing, well-nourished, and in no acute distress. HEAD: Normocephalic, atraumatic. ENT: Mucous membranes moist. CHEST: Clear to auscultation. No respiratory distress. HEART: Regular rate and rhythm. Normal peripheral pulses. ABDOMEN: Soft, nontender, nondistended. EXTREMITIES: Normal range of motion. No edema. SKIN: Warm, dry, no rash. NEURO: Alert and oriented x3. PSYCH: Normal mood and affect. <Castro Toribio MD - Last Filed: 04/28/24 18:57> Course Course Emergency Course: patient aggressively hydrated. Tolerating p.o.. Feels better. Discharged home. Elevated lactate which is felt to be from stress of vomiting <Castro Toribio MD - Last Filed: 04/28/24 18:57> Vital Signs Vital signs: Vital Signs Temperature 97.6 F 04/28/24 14:05 Pulse Rate 86 04/28/24 14:05 Respiratory Rate 18 04/28/24 14:05 Blood Pressure 98/35 L 04/28/24 14:05 Pulse Oximetry 100 04/28/24 14:05 Oxygen Delivery Room Air 04/28/24 14:05 Temperature 97.6 F 04/28/24 14:05 Pulse Rate 79 04/28/24 16:23 Respiratory Rate 19 04/28/24 16:23 Blood Pressure 154/68 H 04/28/24 16:23 Pulse Oximetry 100 04/28/24 16:23 Oxygen Delivery Room Air 04/28/24 14:05 <Meaghan Dhillon PA-C - Last Filed: 04/28/24 14:53> Vital Signs Temperature 97.6 F 04/28/24 14:05 Pulse Rate 86 04/28/24 14:05 Respiratory Rate 18 04/28/24 14:05 Blood Pressure 98/35 L 04/28/24 14:05 Pulse Oximetry 100 04/28/24 14:05 Oxygen Delivery Room Air 04/28/24 14:05 Temperature 97.6 F 04/28/24 14:05 Pulse Rate 79 04/28/24 16:23 Respiratory Rate 19 04/28/24 16:23 Blood Pressure 154/68 H 04/28/24 16:23 Pulse Oximetry 100 04/28/24 16:23 Oxygen Delivery Room Air 04/28/24 14:05 <Castro Toribio MD - Last Filed: 04/28/24 18:57> MDM - Nausea/Vomiting/Diarrhea MDM Narrative Medical decision making narrative: MSE by SANDRA in triage. <Meaghan Dhillon PA-C - Last Filed: 04/28/24 14:53> Lab Data Result diagrams: 04/28/24 15:04 04/28/24 15:04 <GINNY Villegas Last Filed: 04/28/24 14:53> Labs: Lab Results 04/28/24 Range/Units 15:04 WBC 6.8 (4.5-10.0) K/mm3 RBC 4.96 (4.2-5.4) M/mm3 Hgb 12.5 (12.0-15.0) g/dL Hct 39.4 (37.0-47.0) % MCV 79.4 L (80-100) fl MCH 25.2 L (26-34) pg MCHC 31.7 L (32-36) g/dl RDW 16.8 H (11.5-14.5) % Plt Count 286 (150-375) k/mm3 MPV 9.4 (7.4-10.4) fl Immature Gran % (Auto) 0.1 (0-0.5) % Neut % (Auto) 90.8 H (45.5-73.1) % Lymph % (Auto) 4.9 L (18.3-44.2) % [place] % (Auto) 3.1 (2.6-8.5) % Eos % (Auto) 0.7 (0-4.4) % Baso % (Auto) 0.4 (0.2-1.2) % Lymph # (Auto) 0.33 L (0.9-3.2) K/mm3 [place] # (Auto) 0.2 (0.1-0.6) K/mm3 Eos # (Auto) 0.1 (0-0.3) K/mm3 Baso # (Auto) 0.0 (0.0-0.1) K/mm3 Abs Immat Gran (auto) 0.01 (0.00-0.031) K/mm3 Absolute Neuts (auto) 6.1 (1.3-6.7) K/mm3 Absolute Nucleated RBC 0.000 (0.0-0.012) K/mm3 Nucleated RBC % 0.0 (0.0-0.2) % Platelet Estimate Adequate (Adequate) Large Platelets Present Hypochromasia 1+ Anisocytosis 1+ Ovalocytes 1+ Schistocytes None seen Sodium 139 (137-145) mmol/L Potassium 4.5 (3.4-5.0) mmol/L Chloride 107 (98-107) mmol/L Carbon Dioxide 21 L (22-30) mmol/L Anion Gap 11 (4-12) mmol/L BUN 20 H (7-17) mg/dL Creatinine 0.90 (0.7-1.0) mg/dL Estim Creat Clear Calc Not Reportable Estimated GFR > 60 (59 - ) Glucose 140 H (65-110) mg/dL Lactic Acid 3.4 H (0.7-2.0) mmol/L Calcium 10.0 (8.4-10.2) mg/dL Magnesium 1.7 (1.6-2.3) mg/dL Total Bilirubin 0.8 (0.2-1.3) mg/dL AST 32 (14-36) U/L ALT 24 (6-35) U/L Alkaline Phosphatase 75 (38-126) U/L Total Protein 8.0 (6.3-8.2) g/dL Albumin 4.9 (3.5-5.1) g/dL Lipase 93 (23-300) U/L Influenza A (RT-PCR) Negative (Negative) Influenza B (RT-PCR) Negative (Negative) RSV (RT-PCR) Negative (Negative) SARS-CoV-2 RNA (RT-PCR) Negative (Negative) <Meaghan Dhillon PA-C - Last Filed: 04/28/24 14:53> Lab Results 04/28/24 Range/Units 15:04 WBC 6.8 (4.5-10.0) K/mm3 RBC 4.96 (4.2-5.4) M/mm3 Hgb 12.5 (12.0-15.0) g/dL Hct 39.4 (37.0-47.0) % MCV 79.4 L (80-100) fl MCH 25.2 L (26-34) pg MCHC 31.7 L (32-36) g/dl RDW 16.8 H (11.5-14.5) % Plt Count 286 (150-375) k/mm3 MPV 9.4 (7.4-10.4) fl Immature Gran % (Auto) 0.1 (0-0.5) % Neut % (Auto) 90.8 H (45.5-73.1) % Lymph % (Auto) 4.9 L (18.3-44.2) % [place] % (Auto) 3.1 (2.6-8.5) % Eos % (Auto) 0.7 (0-4.4) % Baso % (Auto) 0.4 (0.2-1.2) % Lymph # (Auto) 0.33 L (0.9-3.2) K/mm3 [place] # (Auto) 0.2 (0.1-0.6) K/mm3 Eos # (Auto) 0.1 (0-0.3) K/mm3 Baso # (Auto) 0.0 (0.0-0.1) K/mm3 Abs Immat Gran (auto) 0.01 (0.00-0.031) K/mm3 Absolute Neuts (auto) 6.1 (1.3-6.7) K/mm3 Absolute Nucleated RBC 0.000 (0.0-0.012) K/mm3 Nucleated RBC % 0.0 (0.0-0.2) % Platelet Estimate Adequate (Adequate) Large Platelets Present Hypochromasia 1+ Anisocytosis 1+ Ovalocytes 1+ Schistocytes None seen Sodium 139 (137-145) mmol/L Potassium 4.5 (3.4-5.0) mmol/L Chloride 107 (98-107) mmol/L Carbon Dioxide 21 L (22-30) mmol/L Anion Gap 11 (4-12) mmol/L BUN 20 H (7-17) mg/dL Creatinine 0.90 (0.7-1.0) mg/dL Estim Creat Clear Calc Not Reportable Estimated GFR > 60 (59 - ) Glucose 140 H (65-110) mg/dL Lactic Acid 3.4 H (0.7-2.0) mmol/L Calcium 10.0 (8.4-10.2) mg/dL Magnesium 1.7 (1.6-2.3) mg/dL Total Bilirubin 0.8 (0.2-1.3) mg/dL AST 32 (14-36) U/L ALT 24 (6-35) U/L Alkaline Phosphatase 75 (38-126) U/L Total Protein 8.0 (6.3-8.2) g/dL Albumin 4.9 (3.5-5.1) g/dL Lipase 93 (23-300) U/L Influenza A (RT-PCR) Negative (Negative) Influenza B (RT-PCR) Negative (Negative) RSV (RT-PCR) Negative (Negative) SARS-CoV-2 RNA (RT-PCR) Negative (Negative) <Castro Toribio MD - Last Filed: 04/28/24 18:57> Discharge Plan Discharge Clinical Impression: Gastroenteritis <Meaghan Dhillon PA-C - Last Filed: 04/28/24 14:53> Patient Disposition: Home, Self-Care <GINNY Villegas Last Filed: 04/28/24 14:53> Condition: Stable <GINNY Villegas Last Filed: 04/28/24 14:53> Instructions: Acute Nausea and Vomiting (ED) <GINNY Villegas Last Filed: 04/28/24 14:53> Additional Instructions: Please drink plenty of fluids at home. Return to the emergency department if you develop high fevers, have persistent severe abdominal pain, or have bloody stools or vomit, as these could be signs of a more serious medical emergency. Return to the emergency department if you are unable to keep down liquids because of severe nausea/vomiting. <GINNY Villegas Last Filed: 04/28/24 14:53> Patient Language: Cook Islander <GINNY Villegas Last Filed: 04/28/24 14:53> Prescriptions: New ondansetron 4 mg tablet,disintegrating 4 mg PO Q6H PRN (Reason: nausea and vomiting) Qty: 10 0RF No Action travoprost [Travatan Z] 0.004 % drops 1 drop EACH EYE QPM cyclobenzaprine 5 mg tablet 5 mg PO TID PRN (Reason: muscle spasm) Qty: 60 0RF methylprednisolone [Medrol (Clarence)] 4 mg tablets,dose pack See Rx Instructions PO PER PKG DIR Qty: 21 0RF Rx Instructions: PO PER PKG DIR for 6 days amlodipine 10 mg tablet 10 mg PO DAILY Qty: 90 1RF rosuvastatin 20 mg tablet See Rx Instructions .ROUTE .COMPLEX Qty: 90 1RF Dose Instruction: TAKE 1 TABLET BY MOUTH EVERY DAY Rx Instructions: TAKE 1 TABLET BY MOUTH EVERY DAY ezetimibe 10 mg tablet See Rx Instructions .ROUTE .COMPLEX Qty: 90 1RF Dose Instruction: TAKE 1 TABLET BY MOUTH EVERY DAY Rx Instructions: TAKE 1 TABLET BY MOUTH EVERY DAY levothyroxine 88 mcg tablet See Rx Instructions .ROUTE .COMPLEX Qty: 90 1RF Dose Instruction: TAKE 1 TABLET BY MOUTH EVERY DAY Rx Instructions: TAKE 1 TABLET BY MOUTH EVERY DAY clopidogrel 75 mg tablet See Rx Instructions .ROUTE .COMPLEX Qty: 90 1RF Dose Instruction: TAKE 1 TABLET BY MOUTH EVERY DAY IN THE MORNING Rx Instructions: TAKE 1 TABLET BY MOUTH EVERY DAY IN THE MORNING pantoprazole 40 mg tablet,delayed release (DR/EC) See Rx Instructions .ROUTE .COMPLEX Qty: 90 1RF Dose Instruction: TAKE 1 TABLET BY MOUTH EVERY DAY Rx Instructions: TAKE 1 TABLET BY MOUTH EVERY DAY <Meaghan Dhillon PA-C - Last Filed: 04/28/24 14:53> Follow-up/Referrals: Paulette Ceron MD [Primary Care Provider] - 1 Week <Meaghan Dhiloln PA-C - Last Filed: 04/28/24 14:53>
[2024-04-28 15:20] LABS: Basophils Percent Auto 0.4 % (0.2-1.2); Eosinophils Absolute Auto 0.1 K/mm3 (0-0.3); Eosinophils Percent Auto 0.7 % (0-4.4); Hematocrit 39.4 % (37.0-47.0); Hemoglobin 12.5 g/dL (12.0-15.0); Immature Granulocyte Absolute 0.01 K/mm3 (0.00-0.031); Immature Granulocyte Percent A 0.1 % (0-0.5); Lymphocytes Absolute Auto 0.33 K/mm3 (0.9-3.2); Lymphocytes Percent Auto 4.9 % (18.3-44.2); Mean Corpuscular HGB Conc 31.7 g/dl (32-36); Mean Corpuscular Hemoglobin 25.2 pg (26-34); Mean Corpuscular Volume 79.4 fl (80-100); Mean Platelet Volume 9.4 fl (7.4-10.4); Monocytes Absolute Auto 0.2 K/mm3 (0.1-0.6); Monocytes Percent Auto 3.1 % (2.6-8.5); Neutrophils Absolute Auto 6.1 K/mm3 (1.3-6.7); Neutrophils Percent Auto 90.8 % (45.5-73.1); Platelet Count Result 286 k/mm3 (150-375); Red Blood Count 4.96 M/mm3 (4.2-5.4); Red Cell Distribution Width 16.8 % (11.5-14.5); White Blood Count 6.8 K/mm3 (4.5-10.0)
[2024-04-28 15:27] LABS: Lactic Acid Reflex 3.4 mmol/L (0.7-2.0)
[2024-04-28 15:28] LABS: Alanine Aminotransferase 24 U/L (6-35); Albumin Level 4.9 g/dL (3.5-5.1); Alkaline Phosphatase 75 U/L (38-126); Anion Gap 11 mmol/L (4-12); Aspartate Amino Transferase 32 U/L (14-36); Bilirubin,Total 0.8 mg/dL (0.2-1.3); Blood Urea Nitrogen 20 mg/dL (7-17); Carbon Dioxide 21 mmol/L (22-30); Chloride 107 mmol/L (98-107); Estimated Glomerular Filt Rate > 60; Glucose 140 mg/dL (65-110); Lipase 93 U/L (23-300); Magnesium 1.7 mg/dL (1.6-2.3); Potassium 4.5 mmol/L (3.4-5.0); Sodium 139 mmol/L (137-145)
[2024-04-28 15:56] LABS: Influenza A QL RT-PCR Negative (Negative); Influenza B QL RT-PCR Negative (Negative); RSV RNA, RT-PCR Negative (Negative); SARS-CoV-2 RNA PCR Negative (Negative)
[2024-04-28 15:59] LABS: Ovalocytes 1+
[2024-04-28 16:00] LABS: Anisocytosis 1+; Large Platelets Present; Platelet Estimate Adequate (Adequate)
[2024-04-28 16:01] LABS: Hypochromasia 1+; Schistocytes None Seen
[2024-04-28 16:23] VITALS: BP 154/68; PULSE 79; RESP 19; O2SAT 100
[2024-04-28] MEDS: SODIUM CHLORIDE 0.9% IV 1,000 ML 999 ML IV CONT ×2 (16:25→17:16)
[2024-04-28 16:58] VITALS: PULSE 91; RESP 12; O2SAT 99
[2024-04-28 18:13] LABS: Reflex Lactic Acid Yes or No Add Lactic
[2024-04-28 18:46] VITALS: BP 147/64; PULSE 93; RESP 19; O2SAT 99
[2024-04-28 19:28] VITALS: BP 145/62; PULSE 94; RESP 17; TEMP 36.9; O2SAT 97
== END 2024-04-28 19:19 | disposition home or self-care (01) ==
PROVIDERS: Physician Assistant; Emergency Provider Emergency Medicine; PCP Family Medicine
DX: K52.9 Noninfective gastroenteritis and colitis, unspecified (principal); Z20.822 Contact with and (suspected) exposure to COVID-19; Z86.73 Personal history of transient ischemic attack (TIA), and cerebral infarction without residual deficits; K21.9 Gastro-esophageal reflux disease without esophagitis; I10 Essential (primary) hypertension; E03.9 Hypothyroidism, unspecified
CPT/HCPCS: 36415; 74177; 80053; 83605; 83690; 83735; 85025; 87637; 96360; 96361; 99283; J7030; Q9967

== ENCOUNTER 2024-08-23 12:58 | Outpatient (CLI) | payer MEDICARE, SELFPAY ==
--- NOTE | ~2024-08-23 | MM_ITS ---
EXAMINATION: MM screening jillian BI w jennifer HISTORY: Screening TECHNIQUE: Craniocaudal and mediolateral oblique 3-D tomosynthesis images were obtained and synthetic 2-D images were generated. CAD analysis was submitted and interpreted. COMPARISON: Comparison to multiple prior studies sequentially, with oldest reviewed study dated 07/25. BREAST PARENCHYMAL COMPOSITION: Not dense: There are scattered areas of fibroglandular density. FINDINGS: There is no evidence of suspicious mass, calcification, or architectural distortion to sugg est malignancy in either breast. There has been no suspicious interval change. IMPRESSION: 1. No mammographic evidence of malignancy. 2. Recommend routine screening mammography in one year. BI-RADS Category 1: Negative Reviewed, dictated and finalized at location B.
== END 2024-08-23 12:59 | disposition home or self-care (01) ==
LOC: MICIMG 12:59
PROVIDERS: PCP Family Medicine; Visit Provider Family Medicine
DX: Z12.31 Encounter for screening mammogram for malignant neoplasm of breast (principal)
CPT/HCPCS: 77063; 77067

== ENCOUNTER 2024-10-14 07:02 | Outpatient (CLI) | payer MEDICARE, SELFPAY ==
--- NOTE | ~2024-10-14 | MR_ITS ---
MRI of the thoracic spine Clinical History: Radiculopathy Technique: Axial T2-weighted and gradient images, and sagittal T1-weighted, T2-weighted, and STIR josey ges were acquired. Findings: There is no fracture or subluxation of the thoracic spine. Vertebral bodies maintain normal height and alignment. No bone marrow signal abnormality seen. No significant disc bulge or herniation seen at any thoracic level. There is no spinal canal stenosis or cord compression at thoracic spine. Neural foramina are preserved throughout the thoracic spine. No abnormal signal seen in the spinal cord. Paravertebral soft tissues are unremarkable. Impression: Unremarkable exam. Reviewed, dictated and finalized at location . Impression: Unremarkable exam.
--- NOTE | ~2024-10-14 | MR_ITS ---
MRI of the lumbar spine Clinical History: Radiculopathy Technique: Axial T2-weighted images, and sagittal T1-weighted, T2-weighted, and T2 fat-sat images wer e acquired. Findings: No fracture or subluxation seen in the lumbar spine. Vertebral bodies maintain normal heigh t and alignment. No bone marrow signal abnormality seen. No significant disc bulge or herniation seen in the lateral. There are mild to moderate facet joint d egenerative changes. No spinal canal stenosis or neural foraminal narrowing in the lumbar spine. Paravertebral soft tissues are unremarkable. Impression: Facet joint degenerative changes. No spinal canal stenosis or neural foraminal narrowing. No fracture or subluxation. Reviewed, dictated and finalized at location . Impression: Facet joint degenerative changes. No spinal canal stenosis or neural foraminal narrowing. No fracture or subluxation.
== END 2024-10-14 07:03 | disposition home or self-care (01) ==
LOC: MICIMG 07:02
PROVIDERS: PCP Family Medicine; Visit Provider Nurse Practitioner Family
DX: M47.896 Other spondylosis, lumbar region (principal); M54.14 Radiculopathy, thoracic region
CPT/HCPCS: 72146; 72148

== ENCOUNTER 2025-01-13 09:48 | Outpatient (CLI) | payer MEDICARE, SELFPAY ==
--- NOTE | ~2025-01-13 | DEXA_ITS ---
Bone Density Report Name: DARIUS SAM Age: 69 Sex: Female Ethnicity: White Date of : 1955 Indication: postmenopausal; screening for osteoporosis; hysterectomy; Referring Provider: GAVIN MONTELONGO Study: Bone densitometry was performed. Exam Date: January 13, 2025 Accession number: [id number] Bone Density: Region BMD T-score Z-score Classification AP Spine(L1-L4) 1.085 0.3 2.3 Normal Femoral Neck (Left) 0.725 -1.1 0.5 Osteopenia Total Hip (Left) 0.878 -0.5 0.8 Normal Femoral Neck (Right) 0.748 -0.9 0.7 Normal Total Hip (Right) 0.910 -0.3 1.1 Normal Total Hip Mean 0.894 -0.4 1.0 Normal World Health Organization criteria for BMD impression classify patients as: Normal (T-score at or above -1.0), Osteopenia (T-score between -1.0 and -2.5), or Osteoporosis (T-score at or below -2.5). 10-year Fracture Risk(1): Major Osteoporotic Fracture 8.2% Hip Fracture 0.7% Reported Risk Factors: [place] (), Neck BMD=0.725, BMI=31.8 (1) FRAX(R) Version 3.08. Fracture probability calculated for an untreated patient. Fracture probability may be lower if the patient has received treatment. Previous Exams: -- Region Exam Age BMD T-score BMD Change BMD Change Date g/cm2 vs Baseline vs Previous -- AP Spine (L1-L4) 01/13/2025 69 1.085 0.3 -12.4%# -7.8%# 07/26/2015 59 1.177 1.2 -5.0%* -8.0%* 04/12/2013 57 1.279 2.1 3.2%* 3.1%* 09/16/2010 54 1.241 1.8 0.1% 0.1% 04/28/2008 52 1.239 1.7 Total Hip(Left) 01/13/2025 69 0.878 -0.5 -11.1%# -10.6%# 07/26/2015 59 0.983 0.3 -0.5% -3.5%* 04/12/2013 57 1.018 0.6 3.1%* 1.8% 09/16/2010 54 1.001 0.5 1.3% 1.3% 04/28/2008 52 0.988 0.4 Total Hip(Right) 01/13/2025 69 0.910 -0.3 -9.4%# -8.9%# 07/26/2015 59 0.999 0.5 -0.5% -6.4%* 04/12/2013 57 1.068 1.0 6.4%* 7.7%* 09/16/2010 54 0.991 0.4 -1.2% -1.2% 04/28/2008 52 1.004 0.5 -- *Denotes significance at 95% confidence level, LSC for AP Spine = 0.022 g/cm2, LSC for Total Hip = 0.027 g/cm2 # Denotes dissimilar scan types or analysis methods Clinical Information Provided by Patient: Has used the following medications: Vitamin D, Calcium Has the following medical conditions: Hysterectomy Patient maximum height was 68 Menopause Age: 42 Drinks caffeinated beverages Onset of menses at age 17 Number of children 0 Missed period for more than 6 months in a row Impression: The patient has low bone mass, based on the Left Femoral Neck T-score. The patient has an estimated ten-year risk of hip fracture of 0.7% and an estimated ten-year risk of major fracture of 8.2%, based on the WHO FRAX algorithm. Unable to evaluate interval change due to the use of different scan modes. Discussion: BONE DENSITY IS LOW AT ONE OR MORE SKELETAL SITES. This patient's lowest T-score is low at one or more skeletal sites. It meets the World Health Organization's (WHO) criteria for ?low bone mass? (T-score between -1.0 and -2.5). The patient's 10-year risk of fracture as calculated by FRAX is less than the threshold where pharmacological therapy is recommended by the National Osteoporosis Foundation (NOF). However, all treatment decisions require clinical judgment and consideration of individual patient factors, including patient preferences, comorbidities, previous drug use, risk factors not captured in the FRAX model (e.g., frailty, falls, vitamin D deficiency, increased bone turnover, interval significant decline in bone density) and possible under or overestimation of fracture risk by FRAX. The patient should follow a healthful lifestyle (good nutrition with adequate calcium and vitamin D, and appropriate weight-bearing exercise). Follow-Up: Consider repeating this study in 2 to 3 years to reassess this patient's status, or sooner if there is some new clinical indication. Reported by: MALLORY on 01/13/2025 10:11:00 AM. Reviewed, dictated and finalized at location A.
== END 2025-01-13 09:49 | disposition home or self-care (01) ==
LOC: MICIMG 09:49
PROVIDERS: PCP Family Medicine; Visit Provider Student in an Organized Health Care Education/Training Program
DX: Z78.0 Asymptomatic menopausal state (principal); M85.852 Other specified disorders of bone density and structure, left thigh
CPT/HCPCS: 77080

== ENCOUNTER 2025-02-15 14:50 | Outpatient (CLI) | payer MEDICARE, SELFPAY ==
[2025-02-15 15:37] LABS: Add Urine Microscopic? NO; Appearance Urine Clear (Clear); Glucose Urine UA Negative (Negative); Leukocyte Esterase Ur Negative LEU/UL (Negative); Nitrate Urine Negative (Negative); Specific Grav Ur 1.014 (1.001-1.035)
== END 2025-02-15 14:51 | disposition home or self-care (01) ==
PROVIDERS: PCP Family Medicine; Visit Provider Physician Assistant Medical
DX: R30.0 Dysuria (principal)
CPT/HCPCS: 81003; 87086